=== PATIENT | male | born 1945 | race Caucasian/White ===

== ENCOUNTER 2020-03-03 15:14 | Outpatient (CLI) | payer MEDICARE, SELFPAY ==
[2020-03-03 15:56] LABS: Blood Urea Nitrogen 26 mg/dL (9-20); Carbon Dioxide 25 mmol/L (22-30); Chloride 107 mmol/L (98-107); Estimated Glomerular Filt Rate 50; Glucose 102 mg/dL (75-110); Potassium 4.2 mmol/L (3.4-5.0); Sodium 139 mmol/L (137-145)
== END 2020-03-03 15:15 | disposition home or self-care (01) ==
LOC: ANHLAB 15:17
PROVIDERS: PCP Internal Medicine; Visit Provider Physician Assistant
DX: I10 Essential (primary) hypertension (principal)
CPT/HCPCS: 36415; 80048

== ENCOUNTER 2020-04-25 14:41 | Outpatient (CLI) | payer MEDICARE, SELFPAY ==
[2020-04-25 16:05] LABS: Anion Gap 8 mmol/L (8-16); Blood Urea Nitrogen 35 mg/dL (9-20); Calcium 9.3 mg/dL (8.4-10.2); Carbon Dioxide 24 mmol/L (22-30); Chloride 104 mmol/L (98-107); Estimated Glomerular Filt Rate 54; Glucose 91 mg/dL (75-110); Potassium 4.5 mmol/L (3.4-5.0); Sodium 136 mmol/L (137-145)
[2020-04-25 16:35] LABS: Prostate Specific Antigen 2.9 ng/mL (< OR = 4.0)
== END 2020-04-25 14:42 | disposition home or self-care (01) ==
PROVIDERS: PCP Physician Assistant; Visit Provider Urology
DX: R97.20 Elevated prostate specific antigen [PSA] (principal)
CPT/HCPCS: 36415; 80048; 84153

== ENCOUNTER 2020-09-14 08:20 | Outpatient (CLI) | payer MEDICARE, SELFPAY ==
[2020-09-14 08:57] LABS: Alanine Aminotransferase 19 U/L (4-50); Albumin Level 4.2 g/dL (3.5-5.1); Alkaline Phosphatase 37 U/L (38-126); Anion Gap 7 mmol/L (8-16); Aspartate Amino Transferase 27 U/L (17-59); Bilirubin,Total 0.5 mg/dL (0.2-1.3); Blood Urea Nitrogen 23 mg/dL (9-20); Calcium 9.3 mg/dL (8.4-10.2); Carbon Dioxide 26 mmol/L (22-30); Chloride 105 mmol/L (98-107); Estimated Glomerular Filt Rate 59; Glucose 110 mg/dL (75-110); Potassium 4.3 mmol/L (3.4-5.0); Sodium 138 mmol/L (137-145)
== END 2020-09-14 08:21 | disposition home or self-care (01) ==
LOC: ANHLAB 08:22
PROVIDERS: PCP Physician Assistant; Visit Provider Physician Assistant
DX: E78.5 Hyperlipidemia, unspecified (principal)
CPT/HCPCS: 36415; 80053

== ENCOUNTER 2020-10-24 11:01 | Outpatient (CLI) | payer MEDICARE, SELFPAY ==
--- NOTE | ~2020-10-24 | XR_ITS ---
EXAMINATION: XR toe 2nd LT min 2V EXAM DATE: 10/24/2020 11:28 INDICATION: No known recent injury provided at this time. Pain of the left 2nd toe. TECHNIQUE: Left 2nd toe frontal, lateral and oblique projections obtained and reviewed. There is n o prior study for comparison. FINDINGS: The medial side of the left 2nd middle phalanx is shorter, causing somewhat triangular-sha ped to this bone, probably congenital appearance. There are no bony erosions identified. There are no acute fractures or dislocations identified. There is no subcutaneous gas. The soft tissue is unrem arkable. There are no radiopaque foreign bodies. IMPRESSION: 1. Left 2nd toe exam without acute osseous findings. Reviewed, dictated and finalized at location A. 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
== END 2020-10-24 11:02 | disposition home or self-care (01) ==
PROVIDERS: PCP Physician Assistant; Visit Provider Physician Assistant
DX: M79.676 Pain in unspecified toe(s) (principal)
CPT/HCPCS: 73660

== ENCOUNTER → 2020-11-02 09:41 | Outpatient (CLI) | payer MEDICARE, SELFPAY ==
[2020-11-03 18:59] LABS: SARS-CoV-2 RNA PCR Negative
== END ==
PROVIDERS: PCP Physician Assistant; Visit Provider Physician Assistant
DX: Z20.822 Contact with and (suspected) exposure to COVID-19 (principal); R68.89 Other general symptoms and signs
CPT/HCPCS: C9803; U0003; U0005

== ENCOUNTER 2020-11-29 10:34 | Outpatient (CLI) | payer MEDICARE, SELFPAY ==
[2020-11-29 11:47] LABS: Basophils Percent Auto 0.5 % (0.2-1.2); Eosinophils Absolute Auto 0.1 K/mm3 (0-0.3); Eosinophils Percent Auto 1.6 % (0-4.4); Hematocrit 41.5 % (42.0-52.0); Hemoglobin 13.6 g/dL (14.0-18.0); Immature Granulocyte Absolute 0.04 K/mm3 (0.00-0.031); Immature Granulocyte Percent A 0.9 % (0-0.5); Lymphocytes Absolute Auto 1.14 K/mm3 (0.9-3.2); Lymphocytes Percent Auto 26.5 % (18.3-44.2); Mean Corpuscular HGB Conc 32.8 g/dl (32-36); Mean Corpuscular Hemoglobin 30.7 pg (26-34); Mean Corpuscular Volume 93.7 fl (80-100); Mean Platelet Volume 9.9 fl (7.4-10.4); Monocytes Absolute Auto 0.5 K/mm3 (0.1-0.6); Monocytes Percent Auto 12.1 % (2.6-8.5); Neutrophils Absolute Auto 2.5 K/mm3 (1.3-6.7); Neutrophils Percent Auto 58.4 % (45.5-73.1); Platelet Count Result 227 k/mm3 (150-375); Red Blood Count 4.43 M/mm3 (4.6-6.20); White Blood Count 4.3 K/mm3 (4.5-10.0)
[2020-11-29 12:00] LABS: Rheumatoid Factor < 8.6 IU/ML (<12)
[2020-11-29 12:01] LABS: CRP < 0.5 mg/dL (<1.0); Uric Acid 4.3 mg/dL (3.5-8.5)
[2020-11-29 12:17] LABS: Erythrocyte Sedimentation Rate 7 mm/hr (0-20)
== END 2020-11-29 10:35 | disposition home or self-care (01) ==
PROVIDERS: PCP Physician Assistant; Visit Provider Podiatrist Foot & Ankle Surgery
DX: M25.579 Pain in unspecified ankle and joints of unspecified foot (principal)
CPT/HCPCS: 36415; 84550; 85025; 85652; 86038; 86140; 86430

== ENCOUNTER 2021-03-05 08:34 | Outpatient (CLI) | payer MEDICARE, SELFPAY ==
--- NOTE | ~2021-03-05 | MR_ITS ---
EXAMINATION: MR foot LT wo/w con DATE: 03/05/2021 10:33 INDICATION: Pain and swelling at the second toe of the left foot. TECHNIQUE: Magnetic resonance imaging (MRI) of the left fore/mid foot was performed without and with 15 mL Multihance intravenous contrast. Sequences included axial, sagittal and coronal T1-weighted FSE and T2-weighted FS FSE, axial T2-weighted FS FSE and postcontrast axial and coronal T1-weighted FS F SE. COMPARISON: Radiographs dated 10/24/2020 FINDINGS: Again seen is asymmetric loss of length on the medial side of the second middle phalanx resulting in varus angulation of the distal phalanx. There is normal marrow signal within the middle phalanx sugge sting this is either developmental or sequela of chronic trauma. There is nonspecific marrow edema an d enhancement at the distal phalanx but without evident fracture or loss of T1 hyperintense marrow fa t signal to more specifically suggest osteomyelitis or other pathologic marrow replacing process. The re is thickening with increased T2 signal and enhancement of the subungual tissues underlying the mahesh l of the second toe. Otherwise normal marrow signal throughout. 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 Additional mild osteoarthritis at the third and fourth tarsa l metatarsal joints. No erosions or joint effusions. The Lisfranc ligament complex as well as the col lateral ligament complex at the metatarsophalangeal and interphalangeal joints are normal. The flexor and extensor tendons as well as intrinsic musculature of the visualized fore and midfoot are normal. IMPRESSION: 1. Enhancement and thickening of the subungual tissues at the left second toe which is most likely in fectious/inflammatory in etiology although differential would include neoplasm either benign or malig nant. 2. Marrow edema and enhancement at the left second distal phalanx. This could be reactive or early os teomyelitis in the appropriate clinical setting although there is no loss of T1 marrow fat signal to specifically suggest ostomy myelitis or other pathologic marrow replacing process. Reviewed, dictated and finalized at location A. IMPRESSION: 1. Enhancement and thickening of the subungual tissues at the left second toe w hich is most likely infectious/inflammatory in etiology although differential w ould include neoplasm either benign or malignant. 2. Marrow edema and enhancement at the left second distal phalanx. This could b e reactive or early osteomyelitis in the appropriate clinical setting although there is no loss of T1 marrow fat signal to specifically suggest ostomy myeliti s or other pathologic marrow replacing process.
[2021-03-05 09:46] LABS: Estimated Glomerular Filt Rate 46
== END 2021-03-05 08:35 | disposition home or self-care (01) ==
PROVIDERS: PCP Physician Assistant
DX: M79.89 Other specified soft tissue disorders (principal)
CPT/HCPCS: 73720; A9577

== ENCOUNTER 2021-04-05 09:51 | Outpatient (CLI) | payer MEDICARE, SELFPAY ==
[2021-04-05 11:32] LABS: Hematocrit 45.2 % (42.0-52.0); Hemoglobin 14.5 g/dL (14.0-18.0); Mean Corpuscular HGB Conc 32.1 g/dl (32-36); Mean Corpuscular Hemoglobin 30.9 pg (26-34); Mean Corpuscular Volume 96.4 fl (80-100); Mean Platelet Volume 9.9 fl (7.4-10.4); Platelet Count Result 213 k/mm3 (150-375); Red Blood Count 4.69 M/mm3 (4.6-6.20); Red Cell Distribution Width 13.5 % (11.5-14.5); White Blood Count 5.8 K/mm3 (4.5-10.0)
[2021-04-05 12:09] LABS: Vitamin D 25 Hydroxy 51.5 ng/mL
[2021-04-05 14:21] LABS: Cholesterol 158 mg/dL (0-200); HDL Direct 48 mg/dL; Triglycerides 111 mg/dL (<150)
[2021-04-05 14:34] LABS: LDL Cholesterol Direct 77 mg/dL
== END 2021-04-05 09:52 | disposition home or self-care (01) ==
PROVIDERS: PCP Physician Assistant; Visit Provider Physician Assistant
DX: E55.9 Vitamin D deficiency, unspecified (principal); E78.5 Hyperlipidemia, unspecified; R53.83 Other fatigue
CPT/HCPCS: 36415; 80061; 82306; 84443; 85027

== ENCOUNTER 2021-05-29 01:56 | Day surgery (SDC) | payer MEDICARE, SELFPAY ==
[2021-05-17 12:52] VITALS: BMI 27.6
[2021-05-29 08:15] VITALS: BP 137/59; PULSE 62; RESP 18; O2SAT 100
[2021-05-29] MEDS: LACTATED RINGERS 1,000 ML 150 ML IV CONT (08:29)
--- NOTE | 2021-05-29 08:41 | WPDGICN ---
Assessment and Plan Assessment and plan (1) Encounter for screening colonoscopy: Code(s): Z12.11 - Encounter for screening for malignant neoplasm of colon Status: Acute Assessment and Plan: Patient presents for screening colonoscopy. He appears to be at average risk for colon polyps. GI Consult Note Consult date/time: 05/29/21 08:41 HPI: Louie Snowden is a 76 year old male Presents for screening colonoscopy. He reports his current weight appetite bowel movements are normal. He denies abdominal pain. He has had no bleeding. Family history is noncontributory. Patient's last colonoscopy was 10 years ago. Was found to be unremarkable. For patient presents today for neoplasia screening. Review of Systems Review of Systems: All systems reviewed & are unremarkable except as noted in HPI and below PMFSH Family History Family History Father Family history of alcoholism Family history of cardiovascular disease Mother Cerebrovascular accident Other Family history of premature coronary heart disease Hypertension Social History Social History Smoking status: Never smoker Second hand tobacco smoke exposure: No Alcohol intake: current Living arrangements: with family Spiritual care concerns: No Meds Home Medications and Allergies Home Medications Medication Instructions Recorded Confirmed Type clonazepam 0.5 mg tablet 0.5 mg PO TID PRN tablet 07/10/19 05/17/21 History finasteride 5 mg tablet 5 mg PO DAILY 08/09/20 05/17/21 History bupropion HCl 300 mg 24 hr tablet, 300 mg PO QAM #90 tablet 09/05/20 05/17/21 Rx extended release fenofibrate 160 mg tablet 160 mg PO DAILY #90 tablet 10/02/20 05/17/21 Rx simvastatin 40 mg tablet 40 mg PO .QHS #90 tablet 10/02/20 05/17/21 Rx triamcinolone acetonide 0.1 % 1 applic TOPICAL BID #30 g 10/03/20 05/17/21 Rx topical cream hydrochlorothiazide 12.5 mg tablet See Rx Instructions .ROUTE 12/04/20 05/17/21 Rx .COMPLEX #90 tablet losartan 100 mg PO HS 05/17/21 05/17/21 History Allergies Allergy/AdvReac Type Severity Reaction Status Date / Time wheat Allergy Severe Anaphylactic Verified 05/17/21 12:49 Shock escitalopram [From Lexapro] AdvReac Mild Cough Verified 05/17/21 12:49 Vital Signs Vital Signs - 24 hr 05/29/21 08:15 Pulse Rate 62 Respiratory Rate 18 Blood Pressure 137/59 L Pulse Oximetry 100 Exam Narrative: Physical exam reveals patient to be alert. Vital signs stable. HEENT exam is unremarkable. Patient is anicteric. Lungs are clear to auscultation and percussion. Heart is without murmur or extra sounds. Abdominal exam bowel sounds are present soft nontender with no organomegaly. Digital external rectal exam is normal.
--- NOTE | 2021-05-29 09:01 | WPDANESEPPF ---
Anes - Initial Pre Proc Eval Procedure: Operation Date: 05/29/21 09:00 Proposed Procedures p Screening Colonoscopy - Campbell Tobias MD Date/Time: 05/29/21 09:01 Surgeon: Campbell Tobias MD Pre Op Diagnosis: neoplasm screening Patient Data Age: 76 Gender: M Height: 1.68 m Weight: 76.9 kg Last Vital Signs Pulse 62 05/29/21 08:15 Resp 18 05/29/21 08:15 BP 137/59 L 05/29/21 08:15 Pulse Ox 100 05/29/21 08:15 Allergies Allergy/AdvReac Type Severity Reaction Status Date / Time wheat Allergy Severe Anaphylactic Verified 05/17/21 12:49 Shock escitalopram [From Lexapro] AdvReac Mild Cough Verified 05/17/21 12:49 Home Medications Medication Instructions Recorded Confirmed Type clonazepam 0.5 mg tablet 0.5 mg PO TID PRN tablet 07/10/19 05/17/21 History finasteride 5 mg tablet 5 mg PO DAILY 08/09/20 05/17/21 History bupropion HCl 300 mg 24 hr tablet, 300 mg PO QAM #90 tablet 09/05/20 05/17/21 Rx extended release fenofibrate 160 mg tablet 160 mg PO DAILY #90 tablet 10/02/20 05/17/21 Rx simvastatin 40 mg tablet 40 mg PO .QHS #90 tablet 10/02/20 05/17/21 Rx triamcinolone acetonide 0.1 % 1 applic TOPICAL BID #30 g 10/03/20 05/17/21 Rx topical cream hydrochlorothiazide 12.5 mg tablet See Rx Instructions .ROUTE 12/04/20 05/17/21 Rx .COMPLEX #90 tablet losartan 100 mg PO HS 05/17/21 05/17/21 History Patient hx anesthesia problems: none Family hx anesthesia problems: none Results Review: All pre-operative results and documents have been reviewed as part of the pre-operative evaluation. [facility] Past Medical History Medical History (Updated 05/29/21 @ 08:45 by Abdoul Maxwell MD) Anxiety Hyperlipidemia Hypertension Family History Family History Father Family history of alcoholism Family history of cardiovascular disease Mother Cerebrovascular accident Other Family history of premature coronary heart disease Hypertension Social History Social History Smoking status: Never smoker Second hand tobacco smoke exposure: No Alcohol intake: current Living arrangements: with family Spiritual care concerns: No Anes - Eval Final PreProcedure Day of Procedure 05/29/21 09:01 Patient weight: overweight Heart: regular rate and rhythm Lungs: clear to auscultation Airway: Mallampati scale class II Neurological: alert and oriented Last oral intake: >/= 8 hours ASA classification: III Anesthetic plan: proceed Anesthesia type and monitoring: general GIVS and standard monitoring Results Review: All pre-operative results and documents have been reviewed as part of the pre-operative evaluation. Informed Consent: The patient's anesthetic plan and its attendant risks and benefits were discussed with the patient/family/POA. Questions were solicited and answers provided to the satisfaction of the patient/family/POA.
[2021-05-29 09:25] VITALS: BP 97/55; PULSE 54; RESP 20; O2SAT 96
[2021-05-29 09:35] VITALS: BP 104/62; PULSE 59; RESP 22; O2SAT 98
[2021-05-29 09:45] VITALS: BP 125/73; PULSE 55; RESP 18; O2SAT 100
== END 2021-05-29 09:55 | disposition home or self-care (01) ==
PROVIDERS: PCP Physician Assistant; Visit Provider Internal Medicine Gastroenterology
PROC: 0DJD8ZZ Inspection of Lower Intestinal Tract, Via Natural or Artificial Opening Endoscopic (ICD-10-PCS; CPT 45378; principal; 2021-05-29 09:00)
DX: Z12.11 Encounter for screening for malignant neoplasm of colon (principal); D12.0 Benign neoplasm of cecum; D12.2 Benign neoplasm of ascending colon; K57.30 Diverticulosis of large intestine without perforation or abscess without bleeding; K64.8 Other hemorrhoids; I10 Essential (primary) hypertension; E78.5 Hyperlipidemia, unspecified; F41.9 Anxiety disorder, unspecified
CPT/HCPCS: 45385; 88305; J2704; J7120

== ENCOUNTER 2021-06-01 10:34 | Emergency (ER) | payer MEDICARE, SELFPAY ==
--- NOTE | ~2021-06-01 | CT_ITS ---
EXAMINATION: CT abdomen pelvis w con DATE: 06/01/2021 13:28 INDICATION: Left lower quadrant abdominal pain 3 days post colonoscopy TECHNIQUE: Computed tomography (CT) of the abdomen and pelvis was performed with 100 mL Omnipaque-350 intravenous contrast. Automated exposure control and iterative reconstruction technique were employe d. The dose-length product was 559.05 mGy-cm. COMPARISON: Chest CT dated 07/26/2019 FINDINGS: Chronic mild atelectasis/scarring at the lingula and minimal dependent atelectasis in the bilateral l ower lobes. Heart size is normal. No pericardial or pleural effusion. Atherosclerotic coronary artery calcific location. Liver, gallbladder, bilateral adrenal glands and left kidney are normal. 6 mm rig ht renal cyst. 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 Punctate calcific lesion at the tail the pancreas which may represent sequela of chronic pancreatit is. Prominent diverticulosis along the descending and sigmoid colon. Edematous wall thickening at the proximal sigmoid colon with prominent surrounding from trace stranding and edema within the mesenter y consistent with diverticulitis. Very small amount of likely reactive free fluid in the deep pelvis. No abscess or free intraperitoneal gas. Tiny amount of fluid extends into a small fat-containing lef t spigelian hernia the orifice of which suggests immediately adjacent to the region of diverticulitis . Small bowel and appendix are normal. Bladder is normal. Multiple brachytherapy seeds at the enlarge d prostate. Small bilateral fat-containing inguinal hernias. No pathologically enlarged abdominal or pelvic lymphadenopathy. Mild lumbar levocurvature with mild to moderate spondylosis. Bilateral hip os teoarthritis, moderate on the right and mild on the left. IMPRESSION: 1. Radiographically uncomplicated sigmoid diverticulitis. 2. Bilateral small fat-containing inguinal hernias and small left spigelian hernia containing fat and a minimal amount of reactive edema related to the adjacent diverticulitis. 3. Small amount of likely reactive ascites in the deep pelvis. 4. Prostatomegaly with multiple brachytherapy seeds. Reviewed, dictated and finalized at location A. IMPRESSION: 1. Radiographically uncomplicated sigmoid diverticulitis. 2. Bilateral small fat-containing inguinal hernias and small left spigelian her ashwin containing fat and a minimal amount of reactive edema related to the adjace nt diverticulitis. 3. Small amount of likely reactive ascites in the deep pelvis. 4. Prostatomegaly with multiple brachytherapy seeds.
[2021-06-01 10:47] VITALS: BP 151/69; PULSE 71; RESP 18; TEMP 35.8; O2SAT 99
[2021-06-01 11:07] LABS: Basophils Percent Auto 0.2 % (0.2-1.2); Eosinophils Absolute Auto 0.1 K/mm3 (0-0.3); Eosinophils Percent Auto 0.5 % (0-4.4); Hematocrit 43.1 % (42.0-52.0); Hemoglobin 14.1 g/dL (14.0-18.0); Immature Granulocyte Absolute 0.06 K/mm3 (0.00-0.031); Immature Granulocyte Percent A 0.6 % (0-0.5); Lymphocytes Percent Auto 10.6 % (18.3-44.2); Mean Corpuscular HGB Conc 32.7 g/dl (32-36); Mean Corpuscular Hemoglobin 31.5 pg (26-34); Mean Corpuscular Volume 96.2 fl (80-100); Mean Platelet Volume 9.4 fl (7.4-10.4); Monocytes Absolute Auto 1.1 K/mm3 (0.1-0.6); Monocytes Percent Auto 10.8 % (2.6-8.5); Neutrophils Percent Auto 77.3 % (45.5-73.1); Platelet Count Result 192 k/mm3 (150-375); Red Blood Count 4.48 M/mm3 (4.6-6.20); Red Cell Distribution Width 13.5 % (11.5-14.5); White Blood Count 10.3 K/mm3 (4.5-10.0)
[2021-06-01 11:10] LABS: Add Urine Microscopic? NO; Appearance Urine Clear (Clear); Bilirubin Urine Negative (Negative); Blood Urine Negative (Negative); Color Urine Straw (Yellow); Glucose Urine UA Negative (Negative); Ketones Urine Negative (Negative); Leukocyte Esterase Ur Negative LEU/UL (Negative); Nitrate Urine Negative (Negative); Protein Urine Negative (Negative); Specific Grav Ur 1.009 (1.001-1.035); Urobilinogen Urine Negative mg/dL (<2.0)
[2021-06-01 11:18] LABS: Alanine Aminotransferase 17 U/L (4-50); Albumin Level 4.7 g/dL (3.5-5.1); Alkaline Phosphatase 41 U/L (38-126); Anion Gap 8 mmol/L (8-16); Aspartate Amino Transferase 28 U/L (17-59); Bilirubin,Total 0.7 mg/dL (0.2-1.3); Blood Urea Nitrogen 18 mg/dL (9-20); Calcium 9.6 mg/dL (8.4-10.2); Carbon Dioxide 28 mmol/L (22-30); Chloride 99 mmol/L (98-107); Estimated CRCL calculation 40 ml/min; Estimated Glomerular Filt Rate 54; Glucose 119 mg/dL (65-110); Lipase 197 U/L (23-300); Potassium 4.2 mmol/L (3.4-5.0); Sodium 135 mmol/L (137-145)
[2021-06-01 11:59] VITALS: BP 129/71; PULSE 66; RESP 19; TEMP 37; O2SAT 97
--- NOTE | 2021-06-01 13:14 | ED.ABDPAIN ---
HPI - Abdominal Pain General Chief Complaint: Abdominal Pain Stated Complaint: abd pain Time Seen by Provider: 06/01/21 12:18 Source: patient Mode of arrival: ambulatory Limitations: no limitations History of Present Illness HPI narrative: 76-year-old male complaining of left lower quadrant pain since Friday morning. Patient had a colonoscopy on Friday and has had increasing pain in the left lower quadrant. No fever, no vomiting, pain worse with bearing down, improves with nothing. No diarrhea, no bloody stool, no hematemesis. No flank pain no dysuria no hematuria no other complaints. MD elicited complaint: abdominal pain Pertinent past history: diverticulitis Related Data Home Medications Medication Instructions Recorded Confirmed clonazepam 0.5 mg tablet 0.5 mg PO TID PRN tablet 07/10/19 05/17/21 finasteride 5 mg tablet 5 mg PO DAILY 08/09/20 05/17/21 losartan 100 mg PO HS 05/17/21 05/17/21 Allergies Allergy/AdvReac Type Severity Reaction Status Date / Time wheat Allergy Severe Anaphylactic Verified 06/01/21 12:07 Shock escitalopram [From Lexapro] AdvReac Mild Cough Verified 06/01/21 12:07 Review of Systems Review of Systems: CONSTITUTIONAL: no fever, no weight loss, no confusion EYES: no vision changes, no eye pain ENT: no rhinorrhea, no sore throat, no difficulty swallowing CARDIOVASCULAR: no chest pain, no leg edema, no palpitations RESPIRATORY: no cough, no shortness of breath, no hemoptysis GASTROINTESTINAL: positive for abdominal pain, no nausea, no vomiting, no diarrhea GENITOURINARY: no flank pain, no dysuria, no hematuria SKIN: no rash, no jaundice MUSCULOSKELETAL: no back pain, no trauma. NEUROLOGIC: No headache, no dizziness, no focal weakness PSYCHIATRIC: No hallucinations, no suicidal ideation [facility] Past Medical History Medical History Anxiety Hyperlipidemia Hypertension Family History Family History Father Family history of alcoholism Family history of cardiovascular disease Mother Cerebrovascular accident Other Family history of premature coronary heart disease Hypertension Social History Social History Smoking status: Never smoker Second hand tobacco smoke exposure: No Alcohol intake: current Spiritual care concerns: No Exam Narrative: General: alert, afebrile, answering all questions appropriately Head: normocephalic, atraumatic Eyes: EOMI bilaterally, anicteric, no injection ENT: moist mucous membranes, oropharynx patent, no rhinorrhea Neck: supple, trachea midline, no JVD Chest: equal chest rise bilaterally, no chest wall trauma noted Lungs: clear to auscultation bilaterally, respirations unlabored CV: regular rate, no JULIENNE B, calf size equal bilaterally Abd: soft, non-distended, LLQ tenderness, no rebound, no gaurding, negative Dsouza's EXT: no deformity noted, moving all extremities equally Skin: warm, dry, no pallor Neuro: alert, oriented x 3; CN 2-12 grossly intact, no dysarthria Psych: affect appropriate, though content normal Course Course Emergency Course: Patient with diverticulitis without perforation on CT. Patient is tolerating p.o., no fever, no perforation. Patient is appropriate to send home with antibiotics. Spoke with patient who agrees with plan. Patient will return immediately if fever, intractable vomiting, worsening pain, inability to tolerate fluids or medications or any concern. Patient knows to follow-up with a primary doctor this week without fail. Vital Signs Vital signs: Vital Signs Temperature 35.8 C L 06/01/21 10:47 Pulse Rate 71 06/01/21 10:47 Respiratory Rate 18 06/01/21 10:47 Blood Pressure 151/69 H 06/01/21 10:47 Pulse Oximetry 99 06/01/21 10:47 Temperature 37.0 C 06/01/21 11:59 Pulse Rate 66 06/01/21 11:5
[2021-06-01 14:21] VITALS: BP 128/64; PULSE 64; RESP 18; O2SAT 96
== END 2021-06-01 14:22 | disposition home or self-care (01) ==
PROVIDERS: Emergency Medicine; Emergency Provider Emergency Medicine; PCP Physician Assistant
DX: K57.32 Diverticulitis of large intestine without perforation or abscess without bleeding (principal); E78.5 Hyperlipidemia, unspecified; I10 Essential (primary) hypertension; N40.0 Benign prostatic hyperplasia without lower urinary tract symptoms
CPT/HCPCS: 36415; 74177; 80053; 81003; 83690; 85025; 99284; Q9967

== ENCOUNTER 2022-02-01 14:23 | Outpatient (CLI) | payer MEDICARE, SELFPAY ==
--- NOTE | ~2022-02-01 | US_ITS ---
US scrotum doppler INDICATION: Left testicular pain TECHNIQUE: Testicular sonogram utilizing grayscale and color Doppler FINDINGS: The testes are normal in size and appearance. No focal lesions are seen. The right testes measures 3.3 x 2.5 x 2.4 cm centimeters, and the left testis measures 4.3 x 2.1 x 2.9 cm cm. There is normal vascular flow to both testes. There are small bilateral epididymal cysts, largest in the left epididymis measuring 7 mm. There is no varicocele or hydrocele. IMPRESSION: 1. Bilateral epididymal cysts. Reviewed, dictated and finalized at location B.
== END 2022-02-01 14:24 | disposition home or self-care (01) ==
PROVIDERS: PCP Physician Assistant; Visit Provider Urology
DX: N50.812 Left testicular pain (principal); N50.3 Cyst of epididymis
CPT/HCPCS: 76870; 93976

== ENCOUNTER 2022-09-05 10:09 | Outpatient (CLI) | payer MEDICARE, SELFPAY ==
[2022-09-05 10:56] LABS: Basophils Percent Auto 0.4 % (0.2-1.2); Eosinophils Absolute Auto 0.4 K/mm3 (0-0.3); Eosinophils Percent Auto 8.2 % (0-4.4); Hemoglobin 13.6 g/dL (14.0-18.0); Immature Granulocyte Absolute 0.04 K/mm3 (0.00-0.031); Immature Granulocyte Percent A 0.8 % (0-0.5); Lymphocytes Absolute Auto 1.29 K/mm3 (0.9-3.2); Lymphocytes Percent Auto 26.4 % (18.3-44.2); Mean Corpuscular HGB Conc 33.2 g/dl (32-36); Mean Corpuscular Hemoglobin 30.8 pg (26-34); Mean Corpuscular Volume 92.8 fl (80-100); Mean Platelet Volume 9.2 fl (7.4-10.4); Monocytes Absolute Auto 0.6 K/mm3 (0.1-0.6); Monocytes Percent Auto 11.5 % (2.6-8.5); Neutrophils Absolute Auto 2.6 K/mm3 (1.3-6.7); Neutrophils Percent Auto 52.7 % (45.5-73.1); Platelet Count Result 226 k/mm3 (150-375); Red Blood Count 4.42 M/mm3 (4.6-6.20); Red Cell Distribution Width 13.6 % (11.5-14.5); White Blood Count 4.9 K/mm3 (4.5-10.0)
[2022-09-05 11:05] LABS: Alanine Aminotransferase 20 U/L (6-50); Albumin Level 4.3 g/dL (3.5-5.1); Alkaline Phosphatase 44 U/L (38-126); Anion Gap 5 mmol/L (8-16); Aspartate Amino Transferase 23 U/L (17-59); Bilirubin,Total 0.5 mg/dL (0.2-1.3); Blood Urea Nitrogen 19 mg/dL (9-20); Calcium 9.3 mg/dL (8.4-10.2); Carbon Dioxide 28 mmol/L (22-30); Chloride 107 mmol/L (98-107); Cholesterol 143 mg/dL (0-200); Estimated Glomerular Filt Rate 54; Glucose 104 mg/dL (65-110); HDL Direct 40 mg/dL; Potassium 4.2 mmol/L (3.4-5.0); Sodium 140 mmol/L (137-145); Triglycerides 140 mg/dL (<150)
[2022-09-05 11:15] LABS: LDL Cholesterol Direct 72 mg/dL
[2022-09-05 12:03] LABS: Vitamin D 25 Hydroxy 41.8 ng/mL
[2022-09-05 12:10] LABS: Folic Acid 9.4 ng/mL (2.76->20)
== END 2022-09-05 10:10 | disposition home or self-care (01) ==
PROVIDERS: PCP Physician Assistant; Visit Provider Physician Assistant
DX: R53.83 Other fatigue (principal); E78.5 Hyperlipidemia, unspecified; E55.9 Vitamin D deficiency, unspecified
CPT/HCPCS: 36415; 80053; 80061; 82306; 82607; 82746; 84443; 85025

== ENCOUNTER 2022-09-13 09:45 | Outpatient (CLI) | payer MEDICARE, SELFPAY ==
--- NOTE | ~2022-09-13 | US_ITS ---
EXAMINATION: US retroperitoneal duplex ltd DATE: 09/13/2022 11:10 INDICATION: Hypertension. TECHNIQUE: Multiple grayscale, color Doppler, and pulsed Doppler images of the kidneys and renal julio janeth were obtained. COMPARISON: CT abdomen and pelvis 06/01/2021 FINDINGS: The aorta peak systolic velocity is 117 cm/s. The right renal artery peak systolic velocity is 137 cm /s in the proximal segment, 143 cm/s in the mid segment, and 148 cm/s in the distal segment. The left renal artery peak systolic velocity is 96 cm/s in the proximal segment, 137 cm/s in the mid segment, and 85 cm/s in the distal segment. IMPRESSION: 1. No Doppler evidence of renal artery stenosis. The prior CT similarly shows no significant renal a rtery stenosis. 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 No Doppler evidence of renal artery stenosis. The prior CT similarly shows no significant renal artery stenosis.
== END 2022-09-13 09:46 | disposition home or self-care (01) ==
PROVIDERS: PCP Physician Assistant; Visit Provider Physician Assistant
DX: I10 Essential (primary) hypertension (principal)
CPT/HCPCS: 93976

== ENCOUNTER 2022-09-23 08:11 | Outpatient (CLI) | payer MEDICARE, SELFPAY ==
--- NOTE | ~2022-09-23 | US_ITS ---
EXAMINATION: US renal BI DATE: 09/23/2022 09:00 INDICATION: Other specified disorders of kidney and ureter. TECHNIQUE: Multiple ultrasound grayscale images of the kidneys were obtained. COMPARISON: Ultrasound 09/13/2022, CT abdomen and pelvis 06/01/2021 FINDINGS: The right kidney measures 11.3 x 6.3 x 6.0 cm. The left kidney measures 12.4 x 5.8 x 5.7 cm. The kidn eys demonstrate normal parenchymal echogenicity. There is no hydronephrosis. The bladder demonstrates a diverticulum. IMPRESSION: 1. Normal kidneys. No hydronephrosis. 2. Bladder diverticulum. Reviewed, dictated and finalized at location A. 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
== END 2022-09-23 08:12 | disposition home or self-care (01) ==
PROVIDERS: PCP Physician Assistant; Visit Provider Physician Assistant
DX: N28.89 Other specified disorders of kidney and ureter (principal); N32.3 Diverticulum of bladder
CPT/HCPCS: 76775

== ENCOUNTER 2022-11-12 09:03 | Outpatient (CLI) | payer MEDICARE, SELFPAY ==
--- NOTE | ~2022-11-12 | NM_ITS ---
EXAMINATION: NM deanna stress w perfusion DATE: 11/12/2022 11:41 INDICATION: Atherosclerotic heart disease TECHNIQUE: Rest images were obtained following intravenous administration of 10.8 mCi Tc99m tetrofosm in (Myoview). The patient was infused intravenously with Lexiscan (Regadenoson). Then, 33.0 mCi Tc99m tetrofosmin (Myoview) was administered intravenously, and stress images were obtained. Data was nelson nstructed into short axis and horizontal and vertical long axis SPECT images. Gated SPECT images were also obtained. COMPARISON: None. FINDINGS: There is no definite reversible or fixed perfusion abnormality to suggest ischemia or infar ction. There is normal left ventricular chamber size, wall motion and ejection fraction. Left ventr icular ejection fraction measures >70%. IMPRESSION: 1. Normal myocardial perfusion at rest and during stress. 2. Left ventricular ejection fraction measuring >70%. Reviewed, dictated and finalized at location A.
--- NOTE | 2022-11-12 09:44 | EST_ITS ---
Patient Info Name: Louie Snowden Age: 77 years : 1945 Gender: Male Ht: 65 in Wt: 175 lbs BSA: 1.93 m2 HR: 55 bpm BP: 135 / 67 mmHg Exam Date: 11/12/2022 10:04 AM Exam Location: [facility] Stress Patient Status: Outpatient Admit Date: 11/12/2022 Staff Ordering Physician: Sonny Yeung PA-C Attending Provider: Sonny Yeung PA-C Exercise Technologist: Maribel Reid CT Exercise Physician: Soto Rachel DO Exam Type: CA stress deanna w NM Study Info Indications I25.10 - Atherosclerotic heart disease of [place] coronary artery without angina pectoris A regadenoson stress test was performed. Summary 1. 1. Negative lexiscan stress test for ischemic ST changes by ECG criteria. 2. 2. Stable hemodynamics throughout the test. 3. 3. Nuclear scan to follow and will be reported separately. Please correlate with it. 4. 4. Patient informed of the above results. Protocol: Lexiscan Stress ECG Details Stage: REST Duration (min): 1 min : 15 sec HR (bpm): 55 SBP (mmHg): 135 DBP (mmHg): 67 Stage: REST Duration (min): 7 min : 18 sec HR (bpm): 54 SBP (mmHg): 135 DBP (mmHg): 67 Stage: STAGE 1 Duration (min): 0 min : 59 sec HR (bpm): 72 SBP (mmHg): 135 DBP (mmHg): 70 Stage: RECOVERY Duration (min): 1 min : 0 sec HR (bpm): 76 SBP (mmHg): 135 DBP (mmHg): 70 Stage: RECOVERY Duration (min): 2 min : 0 sec HR (bpm): 75 SBP (mmHg): 135 DBP (mmHg): 70 Stage: RECOVERY Duration (min): 3 min : 0 sec HR (bpm): 73 SBP (mmHg): 130 DBP (mmHg): 63 Stage: RECOVERY Duration (min): 3 min : 13 sec HR (bpm): 72 SBP (mmHg): 130 DBP (mmHg): 63 Rest HR: 54 bpm Peak HR: 76 bpm Rest Sys BP: 135 mmHg Peak Sys BP: 135 mmHg Max Pred HR: 145 bpm % Max Pred HR: 52 % Target HR: 123 bpm Max RPP: 10,260 bpm*mmHg Termination Reason: Completed protocol Cardiac Symptoms: Shortness of breath Total Time: 1 min : 0 sec Rest [place] BP: 67 mmHg Peak [place] BP: 70 mmHg Total Dose: 0.4 mg Resting ECG Sinus bradycardia. Stress ECG No ST changes. Arrhythmias None. Report Signatures
== END 2022-11-12 09:04 | disposition home or self-care (01) ==
PROVIDERS: PCP Physician Assistant; Visit Provider Physician Assistant
DX: I25.10 Atherosclerotic heart disease of native coronary artery without angina pectoris (principal)
CPT/HCPCS: 78452; 93017; A9502; J2785

== ENCOUNTER 2023-09-20 13:10 | Emergency (ER) | payer MEDICARE, SELFPAY ==
--- NOTE | ~2023-09-20 | XR_ITS ---
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 RESULT: Lines, tubes, and devices: None. Lungs and pleura: Clear. Granulomas calcifications. Cardiomediastinal silhouette: Stable. Other: No acute osseous or upper abdominal finding. IMPRESSION: No acute cardiopulmonary process. Reviewed, dictated and finalized at location [facility]. 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
[2023-09-20 13:37] VITALS: BP 134/76; PULSE 68; RESP 14; TEMP 36.8; O2SAT 100
--- NOTE | 2023-09-20 15:26 | ED.URI ---
HPI - URI/Sore Throat General Chief Complaint: Upper Respiratory Infection Stated Complaint: Covid positive Time Seen by Provider: 09/20/23 15:45 Focused HPI: 78 y/o M reports for evaluation for a cough x2 days. States the cough is dry. Reports associated headaches when coughing and nasal congestion. Denies fevers, chest pain, dyspnea, n/v/d, dysuria, hematuria, urinary frequency or urgency. States he had as positive Covid test at home today. GENERAL: Well-appearing, well-nourished, and in no acute distress. HEAD: Normocephalic, atraumatic. CHEST: Clear to auscultation. ?No respiratory distress. HEART: Regular rate and rhythm.? NEURO: ?Alert and oriented x3. Patient screened in triage and initial orders placed.? ?Additional care and disposition to be based upon?diagnostic testing and treatment. History of Present Illness HPI Narrative: 78 y/o M reports for evaluation for a cough x2 days. Pt reports the cough is nonproductive. He reports associated headaches and nasal congestion. States he had a positive at home covid test today and his advised him to come to the ER for further evaluation. He denies fever, chest pain, dyspnea, n/v/d, dysuria, hematuria, urinary frequency or urgency. Related Data Home Medications Medication Instructions Recorded Confirmed clonazepam 0.5 mg tablet 0.5 mg PO TID PRN Anxiety 07/10/19 03/20/23 oxymetazoline 1 % topical cream 1 applic topical DAILY 01/21/23 03/20/23 Allergies Allergy/AdvReac Type Severity Reaction Status Date / Time wheat Allergy Severe Anaphylactic Verified 03/20/23 13:04 Shock escitalopram [From Lexapro] AdvReac Mild Cough Verified 03/20/23 13:04 Review of Systems Review of Systems: All systems reviewed & are unremarkable except as noted in HPI and below PMFSH Past Medical History Medical History Anxiety Family history of pityriasis rosea Hx of adenomatous colonic polyps Hyperlipidemia Hypertension Irritable bowel syndrome with constipation Family History Family History Father Family history of alcoholism Family history of cardiovascular disease Mother Cerebrovascular accident Other Family history of premature coronary heart disease Hypertension Social History Social History Smoking status: Never smoker Second hand tobacco smoke exposure: No Alcohol intake: current Current Housing: Decline to Answer Concerned About Future Housing: Decline to Answer Difficulty Paying Gas/Electric Bills: Decline to Answer Difficulty Paying for Meds: Decline to Answer Currently Unemployed: Decline to Answer Education: Decline to Answer Difficulty w/ Childcare or Family Care: Decline to Answer Living arrangements: with family Spiritual care concerns: No Exam Narrative: GENERAL: Well-appearing, well-nourished, and in no acute distress. HEAD: Normocephalic, atraumatic. EYES: PERRLA and EOMI. ENT: Nares clear, no rhinorrhea or epistaxis. Mucous membranes moist. Posterior pharynx without erythema or edema. No tonsillar hypertrophy. Uvula is midline. NECK: Supple. CHEST: Clear to auscultation. No respiratory distress. HEART: Regular rate and rhythm. No murmur heard. Normal peripheral pulses. ABDOMEN: Soft, nontender, nondistended, normal active bowel sounds. EXTREMITIES: Normal range of motion. No edema. SKIN: Warm, dry, no rash. NEURO: No focal deficits. Alert and oriented x3 Course Vital Signs Vital signs: Vital Signs Temperature 98.3 F 09/20/23 13:37 Pulse Rate 68 09/20/23 13:37 Respiratory Rate 14 09/20/23 13:37 Blood Pressure 134/76 09/20/23 13:37 Pulse Oximetry 100 09/20/23 13:37 Temperature 98.1 F 09/20/23 16:54 Pulse Rate 65 09/20/23 16:54 Respiratory Rate 16 09/20/23 16:54 Blood Pressure 130/7
[2023-09-20 15:45] LABS: Basophils Percent Auto 0.3 % (0.2-1.2); Eosinophils Absolute Auto 0.1 K/mm3 (0-0.3); Eosinophils Percent Auto 1.1 % (0-4.4); Hematocrit 42.1 % (42.0-52.0); Hemoglobin 13.5 g/dL (14.0-18.0); Immature Granulocyte Absolute 0.04 K/mm3 (0.00-0.031); Immature Granulocyte Percent A 0.5 % (0-0.5); Lymphocytes Absolute Auto 0.69 K/mm3 (0.9-3.2); Lymphocytes Percent Auto 8.7 % (18.3-44.2); Mean Corpuscular HGB Conc 32.1 g/dl (32-36); Mean Corpuscular Volume 96.8 fl (80-100); Mean Platelet Volume 9.1 fl (7.4-10.4); Monocytes Absolute Auto 0.9 K/mm3 (0.1-0.6); Monocytes Percent Auto 11.4 % (2.6-8.5); Neutrophils Absolute Auto 6.2 K/mm3 (1.3-6.7); Platelet Count Result 195 k/mm3 (150-375); Red Blood Count 4.35 M/mm3 (4.6-6.20); Red Cell Distribution Width 13.2 % (11.5-14.5)
[2023-09-20 15:54] LABS: Alanine Aminotransferase 22 U/L (6-50); Albumin Level 4.3 g/dL (3.5-5.1); Alkaline Phosphatase 45 U/L (38-126); Anion Gap 8 mmol/L (8-16); Aspartate Amino Transferase 34 U/L (17-59); Bilirubin,Total 0.8 mg/dL (0.2-1.3); Blood Urea Nitrogen 19 mg/dL (9-20); Calcium 9.2 mg/dL (8.4-10.2); Carbon Dioxide 23 mmol/L (22-30); Chloride 101 mmol/L (98-107); Estimated CRCL calculation 45 ml/min; Estimated Glomerular Filt Rate 54; Glucose 99 mg/dL (65-110); Potassium 4.5 mmol/L (3.4-5.0); Sodium 132 mmol/L (137-145)
[2023-09-20 16:21] LABS: Influenza A QL RT-PCR Negative (Negative); Influenza B QL RT-PCR Negative (Negative); RSV RNA, RT-PCR Negative (Negative); SARS-CoV-2 RNA PCR Positive (Negative)
[2023-09-20 16:54] VITALS: BP 130/70; PULSE 65; RESP 16; TEMP 36.7; O2SAT 100
== END 2023-09-20 16:54 | disposition home or self-care (01) ==
LOC: ANHED 16:51
PROVIDERS: Emergency Provider Physician Assistant; PCP Physician Assistant
DX: U07.1 COVID-19 (principal); I10 Essential (primary) hypertension; E78.5 Hyperlipidemia, unspecified; K58.1 Irritable bowel syndrome with constipation; F41.9 Anxiety disorder, unspecified; Z86.010 Personal history of colon polyps
CPT/HCPCS: 36415; 71046; 80053; 85025; 87637; 99283

== ENCOUNTER → 2023-10-17 10:34 | Outpatient (CLI) | payer MEDICARE, SELFPAY ==
--- NOTE | ~2023-10-17 | MR_ITS ---
MRI of the lumbar spine Clinical History: Radiculopathy Technique: Axial T2-weighted images, and sagittal T1-weighted, T2-weighted, and T2 fat-sat images wer e acquired. COMPARISON: 03/11/2015 Findings: There is no fracture or sublocation of the lumbar spine. Vertebral bodies maintain normal h eight and line. No suspicious bone marrow signal abnormality seen. At L1-L2, there is no disc bulge or herniation. There is minimal facet joint hypertrophy. No central canal stenosis or neural foraminal narrowing. At L2-L3, there is moderate to advanced degenerative disc narrowing. There is minimal disc bulge and mild facet arthropathy. No central canal stenosis or definite neural foraminal narrowing. At L3-L4, there is mild disc bulge and mild facet arthropathy. No central canal stenosis. There is mo derate bilateral neural foraminal narrowing. At L4-L5, there is diffuse disc bulge with probable superimposed central disc protrusion. Moderate to advanced facet arthropathy also contribute to severe spinal canal stenosis/thecal sac compression at this level. There is mild bilateral neural foraminal narrowing. At L5-S1, there is minimal disc bulge and moderate to advanced facet arthropathy. No central canal st enosis. There is mild left neural foraminal narrowing. Right neural foramen preserved. Paravertebral soft tissues are unremarkable. Impression: Severe degenerative spondylosis at L4-L5, as detailed above. Mild mild/moderate degenerative change o therwise, as above. Reviewed, dictated and finalized at [facility]. 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 Mild mild/moderate degenerative change otherwise, as above.
== END ==
PROVIDERS: PCP Physician Assistant; Visit Provider Nurse Practitioner Family
DX: M47.26 Other spondylosis with radiculopathy, lumbar region (principal)
CPT/HCPCS: 72148

== ENCOUNTER 2024-02-28 09:47 | Outpatient (CLI) | payer MEDICARE, SELFPAY | END 2024-02-28 09:48 | disposition home or self-care (01) | PROVIDERS: PCP Physician Assistant; Visit Provider Internal Medicine | DX: D64.9 Anemia, unspecified (principal) | CPT/HCPCS: 36415; 82728 ==

== ENCOUNTER 2024-03-08 08:56 | Outpatient (CLI) | payer MEDICARE, SELFPAY ==
[2024-03-08 09:41] LABS: Iron 87 ug/dL (49-181)
[2024-03-08 09:53] LABS: Percent Iron Saturation 27 % (20-50)
== END 2024-03-08 08:57 | disposition home or self-care (01) ==
LOC: ANHLAB 08:58
PROVIDERS: PCP Internal Medicine; Visit Provider Internal Medicine
DX: R79.89 Other specified abnormal findings of blood chemistry (principal)
CPT/HCPCS: 36415; 83540; 83550

== ENCOUNTER 2024-05-30 17:02 | Emergency (ER) | payer MEDICARE, SELFPAY ==
[2024-05-30 17:16] VITALS: BP 156/84; PULSE 65; RESP 16; TEMP 36.6; O2SAT 100
--- NOTE | 2024-05-30 17:34 | ED.GENADULT ---
HPI - General Adult General Chief complaint: Ear Stated complaint: RINGING IN EAR/BLOOD IN EAR Source: patient and family Mode of arrival: ambulatory Limitations: no limitations History of Present Illness HPI narrative: Patient presents for evaluation of sick symptoms. He indicates over last 3-4 days he has experienced sinus congestion, headache, worsening tinnitus, occasional cough. He provides me with conflicting responses as to whether he is experiencing any SOB. He has a history of chronic tinnitus for many years. Symptoms have worsened in the past few days. He reports bleeding from the right ear, noting blood on his pillow case. He states a worker came to repair something in his home and mentioned that he had symptoms consistent with a viral illness. He reports some nausea without vomiting or abdominal pain. Related Data Home Medications Medication Instructions Recorded Confirmed clonazepam 0.5 mg tablet 0.5 mg PO TID PRN Anxiety 07/10/19 05/30/24 oxymetazoline 1 % topical cream 1 applic topical DAILY 01/21/23 05/30/24 cholecalciferol (vitamin D3) 25 25 mcg PO DAILY 01/15/24 01/15/24 mcg (1,000 unit) capsule Allergies Allergy/AdvReac Type Severity Reaction Status Date / Time wheat Allergy Severe Anaphylactic Verified 05/30/24 17:10 Shock escitalopram [From Lexapro] AdvReac Mild Cough Verified 05/30/24 17:10 Review of Systems Review of Systems: CONSTITUTIONAL: Denies fever, chills, or sweats. EYES: Denies visual changes, redness, or discharge. ENT: Reports sinus congestion, bleeding from the right ear and acute on chronic tinnitus. Reports chronic rhinorrhea which he attributes to allergies. CARDIOVASCULAR: Denies chest pain, palpitations, or edema. RESPIRATORY: Reports cough GASTROINTESTINAL: Reports nausea. Denies abdominal pain, vomiting, or diarrhea. GENITOURINARY: Denies dysuria or hematuria. SKIN: Denies rash or itching. MUSCULOSKELETAL: Denies back pain, joint pain, or myalgia. NEUROLOGIC: Reports headache. Denies numbness, dizziness, or weakness. PSYCHIATRIC: Denies anxiety or depression. [facility] Past Medical History Medical History Anxiety Family history of pityriasis rosea Hx of adenomatous colonic polyps Hyperlipidemia Hypertension Irritable bowel syndrome with constipation Family History Family History Father Family history of alcoholism Family history of cardiovascular disease Mother Cerebrovascular accident Other Family history of premature coronary heart disease Hypertension Social History Social History Smoking status: Never smoker Second hand tobacco smoke exposure: No Alcohol intake: current Current Housing: Decline to Answer Concerned About Future Housing: Decline to Answer Difficulty Paying Gas/Electric Bills: Decline to Answer Difficulty Paying for Meds: Decline to Answer Currently Unemployed: Decline to Answer Education: Decline to Answer Difficulty w/ Childcare or Family Care: Decline to Answer Living arrangements: with family Spiritual care concerns: No Exam Narrative: GENERAL: Well-appearing, well-nourished, and in no acute distress. HEAD: Normocephalic, atraumatic. EYES: PERRLA and EOMI. ENT: Nares clear, no rhinorrhea or epistaxis. Mucous membranes moist. Oropharynx without tonsillar hypertrophy exudate or other lesions. There is dried sanguinous drainage in the right ear canal. NECK: Supple. No adenopathy or masses. No carotid bruits or JVD CHEST: Clear to auscultation. No respiratory distress. No wheezes rales or rhonchi HEART: Regular rate and rhythm. No murmur heard. Normal peripheral pulses. ABDOMEN: Soft, nontender, nondistended, normal active bowel sounds. EXTREMITIES: Normal range of motion. No edema. SKIN: [place]
[2024-05-30 18:02] LABS: EDCOVIDSCREEN Negative (Negative); EDINFLUASCREEN Negative (Negative); EDINFLUBSCREEN Negative (Negative)
== END 2024-05-30 18:17 | disposition home or self-care (01) ==
PROVIDERS: Emergency Provider Nurse Practitioner; PCP Internal Medicine
DX: H66.91 Otitis media, unspecified, right ear (principal); Z20.822 Contact with and (suspected) exposure to COVID-19; E78.5 Hyperlipidemia, unspecified; I10 Essential (primary) hypertension; F41.9 Anxiety disorder, unspecified
CPT/HCPCS: 87426; 87804; 99213; G0463

== ENCOUNTER 2024-09-23 08:23 | Outpatient (CLI) | payer MEDICARE, SELFPAY ==
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
--- OUTSIDE RECORDS SUMMARY | 2024-09-23 08:33 | XMS_ITS ---
Author Organization [facility], Address [address] [place] [id number] Care Team Providers Care Order Planner Name Role Phone Sonny Yeung Primary Care Provider Jayro Solomon Unavailable [phone] ALLERGIES No Known Allergies REASON FOR REFERRAL Reason DIAGNOSES: s/p L4-5 lami and disc on the right, SI enthesopathy, back pain/strain, DDD, radiculopathy 3 times per week for 3 weeks eval and treat, exercise, modalities per therapist's discretion; HEP sacroiliac mobilization/stabilization Referral Organization [facility] Referring Provider First Name Jayro Referring Provider Last Name Emily Referring Provider Speciality Orthopedic Surgery Referred Provider Specialty Physical The [facility] Referral Priority Routine REASON FOR VISIT low back MEDICATIONS Medication SIG (Take, Route, Frequency, Duration) Notes Start Date End Date Status methylPREDNISolone 4 MG as directed Oral ly on package for 6 days 07/21/2024 Active HYDROcodone-Acetaminophen 7.5-325 MG 1 tablet as needed Orally every 4-6 hrs for 7 days 02/02/2024 Not-Taking Doxycycline Hyclate 100 MG 1 capsule Ora lly twice daily for 7 days 03/17/2024 Not-Taking Meloxicam 15 MG 1 tablet with food Orally Once a day for 90 days 03/17/2024 Not-Taking Losartan Potassium A ctive clonazePAM Active buPROPion HCl Active Simvastatin Active hydroCHLOROthiazide Active Fenofibrate Active metroNIDAZOLE Active Tylenol Active VITAL SIGNS BMI 28.57 kg/m2 07/21/2024 Height 66 in 07/21/2024 Weight 177 lbs 07/21/2024 Encounters Encounter Location Date Provider Diagnosis [facility] [address] [place] [address] 07/21/2024 Jayro Diaz Other low back pain M54.59 ; Back strain S39.012A ; Myalgia, other site M79.18 ; Arthrodesis status Z98.1 ; Disc Degeneration, Lumbar Region with Leg Pain 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 and 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 ASSESSMENTS Encounter Date Diagnosis Assessment Notes Treatment Notes Treatment Clinical Notes 07/21/2024 Other low back pain (ICD-10 - M54.59) 07/21/2024 Back strain (ICD-10 - S39.012A) 07/21/2024 Myalgia, other site (ICD-10 - M79.18) 07/21/2024 Arthrodesis status (ICD-10 - Z98.1) 07/21/2024 Disc Degeneration, Lumbar Region with Leg Pain (ICD-10 - M51.361) 07/21/2024 Facet degeneration of lumbar region (ICD-10 - M47.816) PLAN OF TREATMENT Medication Medication Name Sig Start Date Stop Date Notes methylPREDNISolone 4 MG as directed Oral ly on package for 6 days 07/21/2024 Referrals Referral Date Details DIAGNOSES: s/p L4-5 lami and disc on the right, SI enthesopathy, back pain/strain, DDD, radiculopathy 3 times per week for 3 weeks eval and treat, exercise, modalities per therapist's discretion; HEP sacroiliac mobilization/stabilization Progress Notes * Examination Category Sub-Category Detail Notes General Examination GENERAL: Patient is a lert and cooperative. He moves about the room in a cautious fashion. He does not walk with a list/limp. He does not use a cane/walker to ambulate NECK: No tenderness to pal pation. Mild kyphosis. Cervical ROM reduced in EXT HEART: Regular rate and rhy thm LUNGS: Clear to auscultatio n in all [place] ABDOMEN: No tenderness to pal pation, bowel sounds present all four quadrants NEUROLOGIC: UE and LE neurologic exam reveals symmetric DTR's, intact sensation, 5+/5+ motor strength. SLR testing negative SKIN: No evidence of skin rashes or dermal lesions MUSCULOSKELETAL: Thoracic exam reveal s no tenderness to palpation, no spasm. Lumbar exam reveals a well-healed back incision, non-tender to touch. Tension involving R. lumbar paraspinal musculature. Tension involving R. lower lumbosacral region. Lumbar ROM reveals FF 95 degrees, EXT 35 degrees, SB 35-40 degrees. Lumbosacral exam reveals focal tenderness to palpation involving R. SI region aggravated with reversed extension test. Gaenslen's sign positive PSYCHIATRIC: Mood and affect appe ar normal HEENT: No masses, PERRLA, E OM intact, no nasal drainage, no lymphadenopathy JOINTS: Hip log roll testing negative. Hip ROM mildly diminished bilaterally in internal rotation HEMATOLOGIC: No evidence of exces sive bruising or bleeding Consultation Request Notes Referral Date Referring Provider Referred Provider Not es 07/21/2024 Jayro Diaz , DIAGNOSES: s /p L4-5 lami and disc on the right, SI enthesopathy, back pain/strain, DDD, radiculopathy 3 times per week for 3 weeks eval and treat, exercise, modalities per therapist's discretion; HEP sacroiliac mobilization/stabilization
--- OUTSIDE RECORDS SUMMARY | 2024-09-23 08:34 | XMS_ITS | Patient Health Record ---
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 Name Role Phone Sanju Jain DO Primary Care Provider Micheal Bustillos Unavailable [phone] Samuel Kelsey Unavailable [phone] Migration, Provider Unavailable Unavailable Allergies No Known Allergies Reason For Referral No Information Medications Medication SIG (Take, Route, Frequency, Duration) Notes Start Date End Date Status clonazePAM 0.5 MG 1 tablet Oral Twice a day for 30 days As needed 08/05/2024 Active hydroCHLOROthiazide 12.5 MG Oral 12/09/2023 Active Fenofibrate 160 MG Oral 12/09/2023 Active buPROPion HCl ER (XL) 300 MG Oral 12/09/2023 Active Losartan Potassium 100 MG Oral 12/09/2023 Active Simvastatin 40 MG Oral 12/09/2023 A ctive Immunizations Vaccine Route Administration Date Status Comme nts Influenza virus vaccine, quadrivalent (IIV4), split virus, 0.25 mL dosage Unknown 05/17/2020 Administered Influenza, high dose seasonal Unknown 06/10/2017 Admini stered Influenza, unspecified formulation Unknown 04/25/2018 A dministered Infuenza, trivalent, recombi nant, preservative free Unknown 06/05/2018 Administered Infuenza, trivalent, recombi nant, preservative free Unknown 05/24/2019 Administered Moderna Covid-19 Vaccine 1st dose Unknown 10/10/2020 Ad ministered Moderna Covid-19 Vaccine 1st dose Unknown 11/07/2020 Ad ministered Pneumococcal conjugate PCV 13 Unknown 12/12/2011 Admini stered Pneumococcal conjugate PCV 13 Unknown 06/10/2017 Admini stered Pneumococcal polysaccharide PPV23 Unknown 01/11/2012 Ad ministered Pneumococcal polysaccharide PPV23 Unknown 06/05/2018 Ad ministered Zoster Unknown 04/06/2020 Administered Zoster Unknown 06/23/2020 Administered Social History Sex Assigned At : Social History Observation Description Sex Assigned At Male Vital Signs Heart Rate 69 /min 08/05/2024 Height-cm 165.10 cm 08/05/2024 Blood pressure diastolic 78 mm Hg 08/05/2024 Weight-kg 83.91 kg 08/05/2024 Height 65.00 in 08/05/2024 Blood pressure systolic 156 mm Hg 08/05/2024 Weight 185.0 lbs 08/05/2024 BMI 30.78 kg/m2 08/05/2024 Encounters Encounter Location Date Provider Diagnosis [place] [id number] [address] 01/20/2024 Samuel Kelsey [place] [address] [facility] [address] [place] [address] 10/08/2023 Samuel Kelsey Major depressive disorder, recurrent, mild F33.0 and Generalized anxiety disorder F41.1 [place] [address] [address] 10/31/2023 Provider Migration Generalized anxiety disorder F41.1 [place] [address] [address] 11/13/2023 Samuel Kelsey Major depressive disorder, recurrent, mild F33.0 and Generalized anxiety disorder F41.1 [place] [address] [address] 11/28/2023 Samuel Kelsey Major depressive disorder, recurrent, mild F33.0 and Generalized anxiety disorder F41.1 [facility] [address] [facility] [address] [place] [address] 12/09/2023 Micheal Almanza Generalized anxiety disorder F41.1 ; Major depressive disorder, recurrent, mild F33.0 and Other insomnia G47.09 [place] [address] [facility] [address] [place] [address] 12/12/2023 Samuel Kelsey Major depressive disorder, recurrent, mild F33.0 and Generalized anxiety disorder F41.1 [facility], [facility] [address] [place] [address] 01/06/2024 Samuel Kelsey Major depressive disorder, recurrent, mild F33.0 and Generalized anxiety disorder F41.1 [facility], [facility] [address] [place] [address] 02/20/2024 Samuel Kelsey Generalized anxiety disorder F41.1 and Recurrent major depressive episodes, mild F33.0 [facility], [facility] [address] [place] [address] 03/05/2024 Samuel Kelsey Generalized anxiety disorder F41.1 and Recurrent major depressive episodes, mild F33.0 [facility], [facility] [address] [place] [address] 03/19/2024 Samule Kelsey Generalized anxiety disorder F41.1 and Recurrent major depressive episodes, mild F33.0 [facility], [facility] [address] [place] [address] 03/31/2024 Samuel Kelsey Generalized anxiety disorder F41.1 and Recurrent major depressive episodes, mild F33.0 [facility], [facility] [address] [place] [address] 04/16/2024 Samuel Kelsey Generalized anxiety disorder F41.1 and Recurrent major depressive episodes, mild F33.0 [facility], [facility] [address] [place] [address] 05/05/2024 Samuel Kelsey Generalized anxiety disorder F41.1 and Recurrent major depressive episodes, mild F33.0 [facility], [facility] [address] [place] [address] 06/04/2024 Samuel Kelsey Generalized anxiety disorder F41.1 and Recurrent major depressive episodes, mild F33.0 [facility], [facility] [address] [place] [address] 07/07/2024 Samuel Kelsey [facility], [facility] [address] [place] [address] 08/04/2024 Samuel Kelsey Generalized anxiety disorder F41.1 and Recurrent major depressive episodes, mild F33.0 [facility], [facility] [address] [place] [address] 08/05/2024 Micheal Almanza Generalized anxiety disorder F41.1 ; Major depressive disorder, recurrent, mild F33.0 and Other insomnia G47.09 [facility], [facility] [address] [place] [address] 10/17/2023 [facility], [facility] [address] [place] [address] 10/28/2023 Provider Migration [facility], [facility] [address] [place] [address] 2024 Provider Migration [facility], [facility] [address] [place] [address] 01/11/2024 [facility], [facility] [address] [place] [address] 02/09/2024 [facility] [address] [place] [address] 02/24/2024 [facility] [address] [place] [address] 04/06/2024 Michealselam Hortaoza Generalized anxiety disorder F41.1 [facility], [facility] [address] [place] [address] 04/08/2024 [facility] [address] [place] [address] 04/17/2024 [facility] [address] [place] [address] 04/28/2024 [facility] [address] [place] [address] 04/28/2024 [facility] [address] [place] [address] 04/28/2024 Micheal Almanza Generalized anxiety disorder F41.1 [facility], [facility] [address] [place] [address] 06/26/2024 Micheal Almanza Generalized anxiety disorder F41.1 [facility], [facility] [address] [place] [address] 06/28/2024 [facility] [address] [place] [address] 07/26/2024 Micheal Almanza Generalized anxiety disorder F41.1 [place] [address] [facility] [address] [facility] [address] [place] [address] 09/01/2024 Micheal Almanza Assessments Encounter Date Diagnosis (ICD Code) Assessment [...] currently on Clonazapam and Trazadone.Client born in [facility] and grew up in [place], but moved around a lot, and spent a lot of time in [facility]. Parents were 59 years with father having [...] currently on Clonazapam and Trazadone.Client born in [facility] and grew up in [place], but moved around a lot, and spent a lot of time in [place]. Parents were 59 years with father having [...] drugs and being very irresponsible and irrational. 06/04/2024 Generalized anxiety disorder (ICD-10 - F41.1) 77 [...] currently on Clonazapam and Trazadone.Client born in [facility] and grew up in [place], but moved around a lot, and spent a lot of time in [facility]. Parents were 59 years with father having [...] drugs and being very irresponsible and irrational. 06/04/2024 Recurrent major depressive episodes, mild (ICD-10 - [...] currently on Clonazapam and Trazadone.Client born in [facility] and grew up in [place], but moved around a lot, and spent a lot of time in [facility]. Parents were 59 years with father having [...] drugs and being very irresponsible and irrational. 04/06/2024 Generalized anxiety disorder (ICD-10 - F41.1) 10/31/2023 Generalized anxiety disorder (ICD-10 - F41.1) 01/06/2024 Major depressive disorder, recurrent, mild (ICD-10 - F33.0) 01/06/2024 Generalized anxiety disorder (ICD-10 - F41.1) 12/12/2023 Major depressive disorder, recurrent, mild (ICD-10 - F33.0) 12/12/2023 Generalized anxiety disorder (ICD-10 - F41.1) 12/09/2023 Major depressive disorder, recurrent, mild (ICD-10 - F33.0) 12/09/2023 Generalized anxiety disorder (ICD-10 - F41.1) 12/09/2023 Other insomnia (ICD-10 - G47.09) 11/28/2023 Major depressive disorder, recurrent, mild (ICD-10 - F33.0) 11/28/2023 Generalized anxiety disorder (ICD-10 - F41.1) 11/13/2023 Major depressive disorder, recurrent, mild (ICD-10 - F33.0) 11/13/2023 Generalized anxiety disorder (ICD-10 - F41.1) 10/08/2023 Major depressive disorder, recurrent, mild (ICD-10 - F33.0) 10/08/2023 Generalized anxiety disorder (ICD-10 - F41.1) 02/20/2024 Generalized anxiety disorder (ICD-10 - F41.1) 77 [...] for medication therapy; currently on Clonazapam and Trazadone. Client born in [facility] and grew up in [place], but moved around a lot, and spent a lot of time in [facility]. Parents were 59 years with father having [...] drugs and being very irresponsible and irrational. 02/20/2024 Recurrent major depressive episodes, mild (ICD-10 - [...] for medication therapy; currently on Clonazapam and Trazadone. Client born in [facility] and grew up in [place], but moved around a lot, and spent a lot of time in [facility]. Parents were 59 years with father having [...] drugs and being very irresponsible and irrational. 03/05/2024 Generalized anxiety disorder (ICD-10 - F41.1) 77 [...] currently on Clonazapam and Trazadone.Client born in [facility] and grew up in [place], but moved around a lot, and spent a lot of time in [facility]. Parents were 59 years with father having [...] drugs and being very irresponsible and irrational. 03/05/2024 Recurrent major depressive episodes, mild (ICD-10 - [...] currently on Clonazapam and Trazadone.Client born in [facility] and grew up in [place], but moved around a lot, and spent a lot of time in [place]. Parents were 59 years with father having [...] drugs and being very irresponsible and irrational. 03/19/2024 Generalized anxiety disorder (ICD-10 - F41.1) 77 [...] currently on Clonazapam and Trazadone.Client born in [facility] and grew up in [place], but moved around a lot, and spent a lot of time in [place]. Parents were 59 years with father having [...] drugs and being very irresponsible and irrational. 03/19/2024 Recurrent major depressive episodes, mild (ICD-10 - [...] currently on Clonazapam and Trazadone.Client born in [facility] and grew up in [place], but moved around a lot, and spent a lot of time in [facility]. Parents were 59 years with father having [...] drugs and being very irresponsible and irrational. 03/31/2024 Generalized anxiety disorder (ICD-10 - F41.1) 77 [...] currently on Clonazapam and Trazadone.Client born in [facility] and grew up in [place], but moved around a lot, and spent a lot of time in [facility]. Parents were 59 years with father having [...] drugs and being very irresponsible and irrational. 03/31/2024 Recurrent major depressive episodes, mild (ICD-10 - [...] currently on Clonazapam and Trazadone.Client born in [facility] and grew up in [place], but moved around a lot, and spent a lot of time in [facility]. Parents were 59 years with father having [...] drugs and being very irresponsible and irrational. 04/16/2024 Generalized anxiety disorder (ICD-10 - F41.1) 77 [...] currently on Clonazapam and Trazadone.Client born in [facility] and grew up in [place], but moved around a lot, and spent a lot of time in [facility]. Parents were 59 years with father having [...] drugs and being very irresponsible and irrational. 04/16/2024 Recurrent major depressive episodes, mild (ICD-10 - [...] currently on Clonazapam and Trazadone.Client born in [facility] and grew up in [place] [place], but moved around a lot, and spent a lot of time in [facility]. Parents were 59 years with father having [...] drugs and being very irresponsible and irrational. 04/28/2024 Generalized anxiety disorder (ICD-10 - F41.1) 05/05/2024 Generalized anxiety disorder (ICD-10 - F41.1) 77 [...] currently on Clonazapam and Trazadone.Client born in [facility] and grew up in [place] [place], but moved around a lot, and spent a lot of time in [facility]. Parents were 59 years with father having [...] drugs and being very irresponsible and irrational. 05/05/2024 Recurrent major depressive episodes, mild (ICD-10 - [...] currently on Clonazapam and Trazadone.Client born in [facility] and grew up in [place], but moved around a lot, and spent a lot of time in [facility]. Parents were 59 years with father having [...] drugs and being very irresponsible and irrational. 06/26/2024 Generalized anxiety disorder (ICD-10 - F41.1) 07/26/2024 Generalized anxiety disorder (ICD-10 - F41.1) 08/05/2024 Major depressive disorder, recurrent, mild (ICD-10 - F33.0) on bupropion xl by pcp 1. Anxiety: - Patient reports anxiety related to lack of control in certain situations, such as insurance changes. Anxiety is mostly stable but can be triggered by specific events. - Patient has been working with a therapist, Samuel, who has provided helpful coping strategies. Plan: - Continue current therapy sessions with Samuel. - Encourage the patient to practice coping strategies and focus on peace of mind. 2. Insomnia: - Patient reports difficulty staying asleep, waking up after 3-4 hours, and getting a total of 5-5.5 hours of sleep per night. - Patient inquires about the normalcy of waking up in the middle of the night at age 79. Plan: - Educate the patient on common sleep disturbances in older adults and potential contributing factors. - Adjust clonazepam dosing to 0.5 mg in the morning, 0.5 mg at noon, and 0.5 mg at night, for a total of 1.5 mg per day. - Monitor sleep quality and reevaluate the medication regimen as needed. 3. Depression: - Patient has a history of low-grade depression (dysthymia) and is currently on bupropion. - Patient inquires about the potential need to change the medication due to long-term use. Plan: - Continue bupropion as prescribed. - Monitor depressive symptoms and discuss the potential need for medication adjustment in future visits if symptoms worsen or do not improve. Pharmacy change: - Patient reports a [facility] in pharmacy [facility] to [facility] in [place] starting August 25. Plan: - Update the patient's pharmacy information in the medical record. - Ensure future prescriptions are sent to the correct pharmacy. 08/05/2024 Generalized anxiety disorder (ICD-10 - F41.1) 1. Anxiety: - Patient reports anxiety related to lack of control in certain situations, such as insurance changes. Anxiety is mostly stable but can be triggered by specific events. - Patient has been working with a therapist, Samuel, who has provided helpful coping strategies. Plan: - Continue current therapy sessions with Samuel. - Encourage the patient to practice coping strategies and focus on peace of mind. 2. Insomnia: - Patient reports difficulty staying asleep, waking up after 3-4 hours, and getting a total of 5-5.5 hours of sleep per night. - Patient inquires about the normalcy of waking up in the middle of the night at age 79. Plan: - Educate the patient on common sleep disturbances in older adults and potential contributing factors. - Adjust clonazepam dosing to 0.5 mg in the morning, 0.5 mg at noon, and 0.5 mg at night, for a total of 1.5 mg per day. - Monitor sleep quality and reevaluate the medication regimen as needed. 3. Depression: - Patient has a history of low-grade depression (dysthymia) and is currently on bupropion. - Patient inquires about the potential need to change the medication due to long-term use. Plan: - Continue bupropion as prescribed. - Monitor depressive symptoms and discuss the potential need for medication adjustment in future visits if symptoms worsen or do not improve. Pharmacy change: - Patient reports a change in pharmacy from [facility] to [facility] in [place] starting August 25. Plan: - Update the patient's pharmacy information in the medical record. - Ensure future prescriptions are sent to the correct pharmacy. 08/05/2024 Other insomnia (ICD-10 - G47.09) 1. Anxiety: - Patient reports anxiety related to lack of control in certain situations, such as insurance changes. Anxiety is mostly stable but can be triggered by specific events. - Patient has been working with a therapist, Samuel, who has provided helpful coping strategies. Plan: - Continue current therapy sessions with Samuel. - Encourage the patient to practice coping strategies and focus on peace of mind. 2. Insomnia: - Patient reports difficulty staying asleep, waking up after 3-4 hours, and getting a total of 5-5.5 hours of sleep per night. - Patient inquires about the normalcy of waking up in the middle of the night at age 79. Plan: - Educate the patient on common sleep disturbances in older adults and potential contributing factors. - Adjust clonazepam dosing to 0.5 mg in the morning, 0.5 mg at noon, and 0.5 mg at night, for a total of 1.5 mg per day. - Monitor sleep quality and reevaluate the medication regimen as needed. 3. Depression: - Patient has a history of low-grade depression (dysthymia) and is currently on bupropion. - Patient inquires about the potential need to change the medication due to long-term use. Plan: - Continue bupropion as prescribed. - Monitor depressive symptoms and discuss the potential need for medication adjustment in future visits if symptoms worsen or do not improve. Pharmacy change: - Patient reports a change in pharmacy from [facility] to [facility] in [place] starting August 25. Plan: - Update the patient's pharmacy information in the medical record. - Ensure future prescriptions are sent to the correct pharmacy. 02/20/2024 Other Client participated in individual psychotherapy(CB T) related to his history of anxiety and mild depression. Based on today's session continued psychotherapy is recommended with no changes to treatment plan. Client presented to session well groomed and fully oriented with no risk of harm to self or others. Seen today for the first time since 01.06.2024. Verbal and engaged through out session with appropriate mood and affect. Reported upon presentation that he has okay and recovering from back surgery he had a few weeks ago. Noted that is doing much better after her recent heart surgery and did a wonderful job stepping up after his surgery. Further stated that he was able to set a healthy boundary with one of his grandson when he told him no. Grandson had requested to drive one of his vehicles even though he does not have a drivers license. Client admitted that a year ago he would not have been able to tell grandson no. Session accordingly addressed client's beliefs (regarding) boundary setting and anxiety. He was receptive to session feedback and was encouraged to continue examing beliefs which no longer work. Added that he has been able to tell no more often. Next session in two weeks. 77 year old male who presents [...] for medication therapy; currently on Clonazapam and Trazadone. Client born in [facility] and grew up in [facility] [place], but moved around a lot, and spent a lot of time in [facility]. Parents were 59 years with father having [...] drugs and being very irresponsible and irrational. 03/05/2024 Other Client participated in individual psychotherapy(CB T) related to history of anxiety and depression. Based on today's session continued psychotherapy is recommended with no changes to treatment plan. Client presented to session well groomed and fully oriented with no risk of harm to self or others. Client verbal and engaged through out session. Reported upon presentation that he has not been quite well as I am normally am . Noted that anxiety has been elevated inspite of back feeling better. Further shared that he recently had some blood workup and was told that something was high and needed to have further blood work done. Stated that he considered not doing further blood work due to fear of finding out what could be wrong. Focus of session centered on exploring client's beliefs regarding where he is at in life and how beliefs impact and or contribute to his anxiety and depression. Client recepive to session feedback. Next session in two weeks. 77 year old male who presents [...] currently on Clonazapam and Trazadone.Client born in [facility] and grew up in [facility] [place], but moved around a lot, and spent a lot of time in [facility]. Parents were 59 years with father having [...] drugs and being very irresponsible and irrational. 03/19/2024 Other Client partcipated in individual psychotherpay(CB T) related to hx of anxiety and depression. Based on today's session continued psychotherapy is recommended with no changes to treatment plan. Client presented to session well groomed and fully oriented with no risk of harm to self or others. Client verbal and engaged through out session. Reported upon presentation that he had been good a couple of days ago but has since then had an increase in anxiety. Believes that he has allowed self to get over whelmed by so much going on around him. Client admitted that he has a an unhealthy relationship with money as a result of how he was raised. Noted that he does not like spending money on himself but is not bothered when spends money. Session accordingly helped client explore and address beliefs which continue to support and fuel his anxiety and depression. Session moreover also explore client's relationship with anger. Client recepitve to session feedback. Next session in two weeks. 77 year old male who presents [...] currently on Clonazapam and Trazadone.Client born in [facility] and grew up in [facility], but moved around a lot, and spent a lot of time in [facility]. Parents were 59 years with father having [...] drugs and being very irresponsible and irrational. 03/31/2024 Other Client participated in individual psychotherapy(CB T) related to hx of anxiety and depression. Based on today's session continued psychotherapy is recommended with no changes to treatment plan. Client presented to session well groomed and fully oriented with no risk of harm to self or others. Client verbal and engaged throuh out session. Reported upon presentation that he has been up and down since last seen on 03.19.2024. Spoke at length about recent changes he has had in his life in the past years. Admitted that he has not been as accepting of changes as he has needed to be.Most recent change has been 's declining cognitive abilities. Stated that son recently stated that mom is not sticking to the plot in describing her current cognitive issues. Session accordingly helped client process and examine his thoughts and feelings surrounding 's health issues and his relatinship with control and certainty. Client receptive to session feedback and was encouraged to continue in examining his relationship with control. Next session in two weeks. 77 year old male who presents [...] currently on Clonazapam and Trazadone.Client born in [facility] and grew up in [facility], but moved around a lot, and spent a lot of time in [facility]. Parents were 59 years with father having [...] drugs and being very irresponsible and irrational. 04/16/2024 Other Client participated in individual psychotherapy related to his hx of anxiety and mild depression. Based on today's session continued pyschotherapy is recommended with no changes to treatment plan. Client presented to session well groomed and fully oriented with no risk of harm to self or others. Client verbal and engaged through out session. Reported upon presentation that he is better then he has been the previous two session. Noted that he has started to figure just how much had changed in the past month and what he had been dealing with. Client admitted that he needs to do a better job of examining self expectations. Remainder of session focused on having client examine and explore beliefs which have fuled and supported who he has become today. Admitted that he has cared too much due to childhood and having parents did not care. Client receptive to session feedback. Next session in two weeks. 77 year old male who presents [...] currently on Clonazapam and Trazadone.Client born in [facility] and grew up in [facility], but moved around a lot, and spent a lot of time in [facility]. Parents were 59 years with father having [...] drugs and being very irresponsible and irrational. 05/05/2024 Other Client particiapted in individual psychotherapy(CB T/Supportive) related to his hx of anxiety and depression. Based on today's session continued psychotherapy is recommended with no changes to treatment plan. Client presented to session well groomed and fully oriented with no risk of harm to self or others. Client verbal and engaged through out session with appropriate mood and affect. Reported upon presentation that he has been okay since last seen on 04.16.2024. Noted that he has been having some sleep problems, staying asleep. Believes Trazadone does not appear to be helping at all. Moreover has continued in setting boundaries with family and surprised at how empowering it feels. Session addressed client's hx of obsessing and anxiety. Conceded that he has struggled letting things go but believes she has done a better job since starting therapy. Next session in three weeks. 77 year old male who presents [...] it very helpful. Client currently sees Micheal Hortaoza for medication therapy; currently on Clonazapam and Trazadone.Client born in [facility] and grew up in [facility], but moved around a lot, and spent a lot of time in [facility]. Parents were 59 years with father having [...] drugs and being very irresponsible and irrational. 06/04/2024 Other Client participated in indiividual psychotherapy(CB T/Supportive related to his hx of anxiety and depression. Based on today's session continued psychotherapy is recommended with no changes to treatment plan. Client presented to session well groomed and fully oriented with no risk of harm to self or others. Client verbal and engaged though out session with appropriate mood and affect. Reported upon presentation that he has been all right since last seen on 05.05.2024. Added however that he had to go to urgent care (Friday night) due to experiencing some bleeding from right ear. Client further shared that he continues struggling accepting getting older and associated physical limitations. Spoke briefly about two grandsons and where they are in life. Primary focus of session challenging client's beliefs and how they have supported and fueled anxiety and depression. Admitted that he needs to be more accepting of who he is and stop caring so much. Client receptive to session feedback. Next session [...] currently on Clonazapam and Trazadone.Client born in [facility] and grew up in [facility], but moved around a lot, and spent a lot of time in [facility]. Parents were 59 years with father having [...] drugs and being very irresponsible and irrational. 07/07/2024 Other Client participated in individual psychotherapy (CBT/Supportive) related to his hx of anxiety and depression. Based on today's session continued psychotherapy is recommended with no changeds to treatment plan. Client presented to session well groomed and fully oriented with no risk of harm to self or others. Client verbal and engagd through out session. Reported upon presentation that he has been tired a lot since last seen on 06.04.2024. Added that he hurt his siatica nerve and had experienced some problems walking since last seen. Added that he is scheduled to see a doctor for his abck on the of this month and has been enjoying playing Bridge on Mondays. Youngest grandson appears to be stable with no concerns at the present time. Client expressed some concern over other grandson, who is hosting Thanksgiving dinner, not inviting him personally for Thanksgiving dinner. Remainder of session client spoke about childhood and relationship with parents and the impact it has had on his anxiety and depression. Client provided supportive therapy and encouragement to keep focusing on what he can control and let of what he cannot control. Next session in four weeks. 77 year [...] currently on Clonazapam and Trazadone.Client born in [facility] and grew up in [facility], but moved around a lot, and spent a lot of time in [facility]. 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 Parents were 59 years with father having [...] very irresponsible and irrational. Plan Of Treatment No Information Insurance Providers Payer Name Payer Address Payer Phone Subscriber Number Group Number Insured Name Patient Relationship to Insured Coverage Start Date Coverage End Date [place] [address] [place] [phone] [id number] NILDA BARILLAS Self - patient is the insured [employer] Supplemental [address] [place] [phone] [id number] NILDA BARILLAS Self - patient is the insured Medical (General) History Medical History History ICD Code Problems: Generalized anxiety disorder Mild recurrent major depression Persistent insomnia , Surgical History Surgery Date(Month/Year) Cataract surgery (00653) Tonsilectomy/adenoids Other Sinus surgery
--- OUTSIDE RECORDS SUMMARY | 2024-09-23 08:34 | XMS_ITS ---
Author Organization [facility] Address [address] [place] [address] Care Team Providers Care Backup Engineer Name Role Phone Sanju Jain DO Primary Care Provider Micheal Bustillos Unavailable [phone] REASON FOR VISIT Appointment Social History Sex Assigned At : Social History Observation Description Sex Assigned At Male Encounters Encounter Location Date Provider Diagnosis [place] [address] [facility] [address] [facility] [address] [place] [address] 09/01/2024 Micheal Almanza Plan Of Treatment No Information Progress Notes * NILDA BARILLASDOB:1945 ([age] yo M)Acc No.[id number]:09/01/2024 Patient:?ERANNILDA :1945???Age:79 Y???Sex:Male Address:[address], [place], [address] * true * Date:? 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
--- OUTSIDE RECORDS SUMMARY | 2024-09-23 08:34 | XMS_ITS ---
Author Organization [facility], Address [address] [place] [address] Care Team Providers Care Bottom Polisher Name Role Phone Sonny Yeung Primary Care Provider Jayro Solomon Unavailable [phone] Encounters Encounter Location Date Provider Diagnosis [facility] [address] [place] [address] 07/09/2024 Jayro Diaz PLAN OF TREATMENT No Information
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
--- OUTSIDE RECORDS SUMMARY | 2024-09-23 08:34 | XMS_ITS ---
Author Organization [facility] [employer] Address [address] [place] [address] Care Team Providers Care Black Belt Name Role Phone Sanju Jain DO Primary Care Provider Micheal Bustillos Unavailable [phone] Allergies No Known Allergies REASON FOR VISIT follow up visit, medication evaluation Medications Medication SIG (Take, Route, Frequency, Duration) Notes Start Date End Date Status clonazePAM 0.5 MG 1 tablet Oral Twice a day for 30 days As needed 08/05/2024 Active hydroCHLOROthiazide 12.5 MG Oral 12/09/2023 Active Fenofibrate 160 MG Oral 12/09/2023 Active Losartan Potassium 100 MG Oral 12/09/2023 Active buPROPion HCl ER (XL) 300 MG Oral 12/09/2023 Active Simvastatin 40 MG Oral 12/09/2023 A ctive Social History Sex Assigned At : Social History Observation Description Sex Assigned At Male Vital Signs Blood pressure systolic 156 mm Hg 08/05/20 24 Blood pressure diastolic 78 mm Hg 024 Heart Rate 69 /min 08/05/2024 Height 65.00 in 08/05/2024 Weight 185.0 lbs 08/05/2024 BMI 30.78 kg/m2 08/05/2024 Height-cm 165.10 cm 08/05/2024 Weight-kg 83.91 kg 08/05/2024 Encounters Encounter Location Date Provider Diagnosis [facility] [employer] [address] [place] [address] 08/05/2024 Micheal Almanza Generalized anxiety disorder F41.1 ; Major depressive disorder, recurrent, mild F33.0 and Other insomnia G47.09 Assessments Encounter Date Diagnosis (ICD Code) Assessment Notes Treatment Notes Treatment Clinical Notes Section Notes 08/05/2024 Generalized anxiety disorder (ICD-10 - F41.1) [...] Patient reports a change in pharmacy from [facility] to [facility] in [place] starting August 25. Plan: - Update the patient's pharmacy information in the medical record. - Ensure future prescriptions are sent to the correct pharmacy. 08/05/2024 Major depressive disorder, recurrent, mild (ICD-10 [...] Patient reports a change in pharmacy from [facility] to [facility] in [place] starting August 25. Plan: - Update the [...] Patient reports a change in pharmacy from [facility] to [facility] in [place] starting August 25. Plan: - Update the patient's pharmacy information in the medical record. - Ensure future prescriptions are sent to the correct pharmacy. Plan Of Treatment Medication Medication Name Sig Start Date Stop Date Notes clonazePAM 0.5 MG 1 tablet Oral Twice a day for 30 days Treatment Notes Assessment Notes Major depressive disorder, recurrent, mi ld on bupropion xl by pcp Next Appt Details Follow Up: 3 Months, Reason: f/u anxiety, depression Progress Notes * NILDA BARILLASDOB:1945 ([age] yo M)Acc No.[id number]:08/05/2024 Patient:?NILDA BARILLAS Provider:?NINOSKA LANG :1945???Age:79 Y???Sex:Male Sid e:08/05/2024 Address:[address] [place], [place] [id number] Pcp:Sanju Jain DO Subjective: * Chief Complaints: * ???Follow up visit, medicati on evaluation * HPI: ???Depression screening:? the note is transcribed using speech recognition software. It is a reflection of a visit with the patient. It might have some inaccuracy, including medication names and transcribing errors, though efforts have been made to correct them. Chief complaint - Anxiety, sleep disturbances, and general unwellness. The patient reports experiencing anxiety, particularly in situations where he feels a lack of control. His anxiety has been affecting his sleep, causing him to wake up after 3 or 4 hours and struggle to fall back asleep. He estimates getting around five to [id number] hours of sleep per night. Additionally, he reports feeling sick to his stomach and generally unwell. The patient describes a recent hunting trip with his son, after which he felt extremely tired and believes he may not have fully recovered from the exhaustion. He states that his day-to-day anxiety is stable, but he still experiences anxious moments. He credits a friend for helping him manage his anxiety through advice and support. Currently, the patient is taking clonazepam for anxiety and bupropion for depression. He inquires about the possibility of adjusting his clonazepam dosage schedule and whether the bupropion may have lost its effectiveness over time. He also mentions that his blood pressure readings tend to be higher at the clinic compared to readings taken at his primary care doctor's office. ?PHQ-9?Little interest or pleasure in doing things?Not at all,?Feeling down, depressed, or hopeless?Not at all,?Trouble falling or staying asleep, or sleeping too much?Nearly every day,?Feeling tired or having little energy?Several days,?Poor appetite or overeating?Nearly every day,?Feeling bad about yourself or that you are a failure, or have let yourself or your family down?Several days,?Trouble concentrating on things, such as reading the newspaper or watching television?Not at all,?Moving or speaking so slowly that other people could have noticed; or the opposite, being so fidgety or restless that you have been moving around a lot more than usual?Not at all,?Thoughts that you would be better off or of hurting yourself in some way?Not at all,?Total Score?8,?Interpretation?Mild Depression.?Depression Screening:?SAMI-7 (2018 Edition)?Feeling nervous, anxious, or on edge?More than half the days,?Not being able to stop or control worrying?Several days,?Worrying too much about different things?Not at all,?Trouble relaxing?Several days, Being so restless that it is hard to sit still?Several days,?Becoming easily annoyed or irritable?Not at all,?Feeling afraid as if something awful might happen?Not at all,?Total SAMI-7 Score?5,?If you checked any problems, how difficult have they made it for you to do your work, take care of things at home, or get along with other people??Not difficult at all,?Interpretation of Total?(5 to 9) Mild.?History of Presenting Problem:?Anxiety?Onset: years ago, Aggravated by: things he can't control, Associated Symptoms: worry, rumination, irritability..?Depression?stable.?Sleep disturbance?interrupted at times.?Psychotherapy?Samuel.?Past Medication history:? trazodone. * Medical History:? * Surgical History:? * Hospitalization/Major Diagno stic Procedure:? * Family History:?Father: rosales alvarado 100 yrs, Family history of sudden cardiac , Alcohol abuse , Bipolar disorder .?Mother: , Depressive disorder .?Brother: alive 70 yrs.?Sister: alive 75 yrs.?1 son(s) , 1 daughter(s) . .? * Medications:?TakingFenofibra te 160 MG Tablet Oral hydroCHLOROthiazide 12.5 MG Tablet Oral Losartan Potassium 100 MG Tablet Oral buPROPion HCl ER (XL) 300 MG Tablet Extended Release 24 Hour Oral Simvastatin 40 MG Tablet Oral clonazePAM 0.5 MG Tablet 1 tablet daily, 0.5 tablet daily as needed Oral Once a day As neededTaking Fenofibrate 160 MG Tablet Oral Taking hydroCHLOROthiazide 12.5 MG Tablet Oral Taking Losartan Potassium 100 MG Tablet Oral Taking buPROPion HCl ER (XL) 300 MG Tablet Extended Release 24 Hour Oral Taking Simvastatin 40 MG Tablet Oral Taking clonazePAM 0.5 MG Tablet 1 tablet daily, 0.5 tablet daily as needed Oral Once a day As neededDiscontinuedDoxycycline Hyclate 50 MG Capsule Oral Medication List reviewed and reconciled with the patientDiscontinued Doxycycline Hyclate 50 MG Capsule Oral Medication List reviewed and reconciled with the patient * Allergies:?N.K.D.A.no[Allerg ies Verified] Objective: * Vitals:?BP:156/78mm Hg, HR:6 9/min, Wt:185.0lbs, Wt-k.91 kg, Ht: 65.00 in, Ht-cm: 165.10 cm, BMI:30.78Index, Body Surface Area: 1.96. * Examination: ???Neurology: ?Cognition Assessment Tools Used?.?Psychiatry: ?Appearance:?well-groomed, well-nourished, ....?Affect / mood:?appropriate, full range.?Attention:?good.?Attitude:?cooperative.?Suicidal ideation:?none.?Memory status:?no impairment noted.?Degree of awareness of surroundings:?within normal limits.?Delusions:?no.?Hallucinations:?no.?Insight:?good.?Intellectual functioning:?no impairment noted.?Judgement:?good.?Orientation:?awake, alert and oriented x 3.?Perceptual disorders:?no perceptual disorder noted.?Psychomotor activity:?within normal range.?Speech / language:?appropriate pitch/modulation, clear and coherent, normal rate, volume, and articulation (RVR), proper grammar used.?Thought content:?appropriate.?Thought process:?intact.?General Examination: ???- Mental Status Examination: - The patient describes experiencing fluctuating anxiety levels, particularly heightened in situations perceived as uncontrollable. - Reports of sleep disturbances are noted, with the patient struggling to maintain sleep and averaging about 5 to 5.5 hours of sleep nightly. - Feelings of sickness and general malaise are expressed by the patient. - Ongoing low-grade depression is acknowledged by the patient, who however, emphasizes anxiety as the predominant concern. - The patient mentions improved coping mechanisms for anxiety, including discussions with the therapist Samuel and a focus on family life. - Vital Signs: - Blood pressure was recorded at 156 during the visit, with the patient recalling a previous measurement of 118/62 taken two weeks earlier at a different healthcare facility. Assessment: * Assessment: 1.?Generalized anxiety disor riley - F41.1 (Primary)???2.?Major depressive disorder, recurrent, mild - F33.0???3.?Other insomnia - G47.09??? 1. Anxiety:- Patient reports anxiety related to lack of control in certain situations, such as insurance changes. Anxiety is mostly stable but can be triggered by specific events.- Patient has been working with a therapist, Samuel, who has provided helpful coping strategies.Plan:- Continue current therapy sessions with Samuel.- Encourage the patient to practice coping strategies and focus on peace of mind.2. Insomnia:- Patient reports difficulty staying asleep, waking up after 3- 4 hours, and getting a total of 5-5.5 hours of sleep per night.- Patient inquires about the normalcy of waking up in the middle of the night at age 79.Plan:- Educate the patient on common sleep disturbances in older adults and potential contributing factors.- Adjust clonazepam dosing to 0.5 mg in the morning, 0.5 mg at noon, and 0.5 mg at night, for a total of 1.5 mg per day.- Monitor sleep quality and reevaluate the medication regimen as needed.3. Depression:- Patient has a history of low-grade depression (dysthymia) and is currently on bupropion.- Patient inquires about the potential need to change the medication due to long-term use.Plan:- Continue bupropion as prescribed.- Monitor depressive symptoms and discuss the potential need for medication adjustment in future visits if symptoms worsen or do not improve.Pharmacy change:- Patient reports a change in pharmacy from [facility] to [facility] in [place] starting August 25.Plan:- Update the patient's pharmacy information in the medical record.- Ensure future prescriptions are sent to the correct pharmacy. Plan: * Treatment: 2.?Major depressive disorder , recurrent, mild? Notes: on bupropion xl by pcp?? * Procedure Codes:?G2211 VISIT COMPLEXITY INHERENT TO ONGOING CARE RELATED TO A PATIENT'S SINGLE, SERIOUS CONDITION OR A COMPLEX CONDITION * Preventive Medicine:? ??Counseling:?BP Management:?FIRST HYPERTENSIVE BP READING FOLLOW-UP PLAN:?Follow-up 1 month Follow up with your PCP,?LIFESTYLE RECOMMENDATION:?Lifestyle education, REFERRAL TO ALTERNATIVE / PRIMARY CARE PROVIDER:?Referral to general medical service Recommended Nonpharmacologic Interventions (Lifestyle Modifications) - Weight ReductionA heart-healthy diet , such as Dietary Approaches to Stop Hypertension (DASH) Eating PlanDietary Sodium RestrictionIncreased Physical ActivityModeration in alcohol consumption.? * Follow Up:?3 Months (Reason: f/u anxiety, depression) * Billing Information: * Visit Code:? 51849 OFFICE OUTPATIENT VISIT 25 MINUTES DETAILED HISTORY AND EXAM/MODERATE MEDICAL DECISION MAKING. * Procedure Codes:? G2211 VISIT COMPLEXITY INHERENT TO ONGOING CARE RELATED TO A PATIENT'S SINGLE, SERIOUS CONDITION OR A COMPLEX CONDITION. * CTOR OF LOSS PREVENTION Sign off status: Completed true * Provider:?NINOSKA LANG Date:?07/2024 Generated for Nathaly trejo/Liz/Jaysmyumi on:?09/23/2024 08:33 AM DIRECTOR OF LOSS PREVENTION History and Physical Notes * HPI (History of Present Illness) Category Sub-Category Detail Notes Category Not es History of Presenting Problem Anxiety Onset: years ago, Aggravated by: things he can't control, Associated Symptoms: worry, rumination, irritability. Depression stable Sleep disturbance interrupted at times Psychotherapy Samuel Depression screening PHQ-9 Little inte rest or pleasure in doing things: Not at all Feeling down, depressed, or hopeless: No t at all Trouble falling or staying asleep, or sl eeping too much: Nearly every day Feeling tired or having little energy: S everal days Poor appetite or overeating: Nearly ever y day Feeling bad about yourself o r that you are a failure, or have let yourself or your family down: Several days Trouble concentrating on thi ngs, such as [...] or of hurting yourself in some way: Not at all Total Score: 8 Interpretation: Mild Depression Depression Screening SAMI-7 (2018 Edition) Feelin g nervous, anxious, or on edge: More than half the days Not being able to stop or control worryi ng: Several days Worrying too much about different things : Not at all Trouble relaxing: Several days Being so restless that it is hard to sit still: Several days Becoming easily annoyed or irritable: No t at all Feeling afraid as if something awful susan ht happen: Not at all Total SAMI-7 Score: 5 If you checked any problems, how difficult have they made it for you to do your work, take care of things at home, or get along with other people?: Not difficult at all Interpretation of Total: (5 to 9) Mild Examination Category Sub-Category Detail Notes Category Not es Neurology Cognition Assessment Tools Used Total score SLUMS: 23 Psychiatry Appearance: well-groomed, we ll-nourished, ... Attitude: cooperative Psychomotor activity: within normal rang e Attention: good Degree of awareness of surroundings: wit hin normal limits Orientation: awake, alert and wyatt ented x 3 Affect / mood: appropriate, full ra nge Speech / language: appropriate pitch/mo dulation, clear and coherent, normal rate, volume, and articulation (RVR), proper grammar used Insight: good Judgement: good Thought process: intact Thought content: appropriate Perceptual disorders: no perceptual diso rder noted Suicidal ideation: none Intellectual functioning: no impairment noted Memory status: no impairment noted Delusions: no Hallucinations: no General Examination - Mental Status Examination: - The patient describes experiencing fluctuating anxiety levels, particularly heightened in situations perceived as uncontrollable. - Reports of sleep disturbances are noted, with the patient struggling to maintain sleep and averaging about 5 to 5.5 hours of sleep nightly. - Feelings of sickness and general malaise are expressed by the patient. - Ongoing low-grade depression is acknowledged by the patient, who however, emphasizes anxiety as the predominant concern. - The patient mentions improved coping mechanisms for anxiety, including discussions with the therapist Samuel and a focus on family life. - Vital Signs: - Blood pressure was recorded at 156 during the visit, with the patient recalling a previous measurement of 118/62 taken two weeks earlier at a different healthcare facility.
--- OUTSIDE RECORDS SUMMARY | 2024-09-23 08:35 | XMS_ITS ---
Author Organization [facility] , Address [address] [place] [address] Care Team Providers Care Soccer Ball Assembler Name Role Phone Sonny Yeung Primary Care Provider Jayro Solomon Unavailable [phone] ALLERGIES No Known Allergies REASON FOR VISIT low back MEDICATIONS Medication SIG (Take, Route, Frequency, Duration) Notes Start Date End Date Status Fenofibrate Active hydroCHLOROthiazide Active clonazePAM Active buPROPion HCl Active Simvastatin Active metroNIDAZOLE Active Doxycycline Hyclate 100 MG 1 capsule Ora lly twice daily for 7 days 03/17/2024 Not-Taking Tylenol Active HYDROcodone-Acetaminophen 7.5-325 MG 1 tablet as needed Orally every 4-6 hrs for 7 days 02/02/2024 Not-Taking Meloxicam 15 MG 1 tablet with food Orally Once a day for 90 days 03/17/2024 Not-Taking methylPREDNISolone 4 MG as directed Oral ly on package for 6 days 07/21/2024 Not-Taking Losartan Potassium A ctive VITAL SIGNS BMI 28.57 kg/m2 08/19/2024 Height 66 in 08/19/2024 Weight 177 lbs 08/19/2024 Encounters Encounter Location Date Provider Diagnosis [facility], [address] [facility] [address] [place] [address] 08/19/2024 Jayro Diaz Other low back pain M54.59 ASSESSMENTS Encounter Date Diagnosis Assessment Notes Treatment Notes Treatment Clinical Notes 08/19/2024 Other low back pain (ICD-10 - M54.59) PLAN OF TREATMENT No Information Progress Notes * Examination Category Sub-Category Detail Notes General Examination GENERAL: Patient is a lert and cooperative. He moves about the room without significant difficulty. He does not walk with a list/limp NECK: No tenderness to pal pation. Mild loss of cervical lordosis. Cervical ROM reduced in EXT HEART: Regular rate and rhy thm LUNGS: Clear to auscultatio n in all [place] ABDOMEN: No tenderness to pal pation, bowel sounds present all four quadrants NEUROLOGIC: LE neurologic exam r eveals symmetric DTR's, intact sensation, 5+/5+ motor strength SKIN: No evidence of skin rashes or dermal lesions MUSCULOSKELETAL: Thoracic exam reveal s no tenderness to palpation, no spasm. Lumbar exam reveals a well-healed back incision, non-tender to touch. Lumbar ROM reveals FF 110 degrees, EXT 35 degrees, SB 45 degrees. He can heel and toe walk PSYCHIATRIC: Mood and affect appe ar normal HEENT: No masses, PERRLA, E OM intact, no nasal drainage, no lymphadenopathy JOINTS: Hip log roll testing negative. Hip ROM full. FABERE test negative HEMATOLOGIC: No evidence of exces sive bruising or bleeding
--- OUTSIDE RECORDS SUMMARY | 2024-09-23 08:35 | XMS_ITS | Clinical Summary ---
Author Organization [facility] Address [address] [place] [phone] Care Team Providers Care Gold Buyer Name Role Phone Cr Doyle MD Unavailable [phone] Sanju Jain DO Primary Care Provider [phone] Allergies Active Allergy Reactions Criticality Noted Date [...] 07/06/2024 Assessment & Plan (07/06/2024 10:52 AM [employer]): I talked with the patient about tinnitus. Typically it is due to hearing loss but there are other potential reasons for it. It can occur due to cervical strain or TMJ disorder. Also potentially due to tumors which are usually benign. Unfortunately there is no widely accepted or successful treatment for it. There are a lot of [id number] remedies which generally do not help and [...] 09/05/2023 Assessment & Plan (07/06/2024 10:51 AM [employer]): He does have pretty significant bilateral sensorineural hearing loss. It is pretty equivalent when comparing right to left. I think he should continue with amplification. 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 07/25/2022 Benign prostatic hyperplasia with urinary obstru ction 07/15/2022 Overview (07/15/2022): Added automatically from request for surgery [id number] Dyslipidemia 02/13/2018 Chest pain 02/13/2018 Essential hypertension 02/13/2018 NAKUL on CPAP 02/13/2018 Encounters Date Type Department Care Team Description 07/06/2024 10:30 AM [employer] Office Visit [facility] Otolaryngology [address] [place] [phone] Jarad Mares MD Tinnitus of right ear (Primary Dx); Sensorineural hearing loss (SNHL) of both ears 07/06/2024 10:00 AM [employer] Procedure visit [facility] Otolaryngology [address] [place] [phone] Alejandrina Dowd Sensorineural hearing loss (SNHL) of both ears (Primary Dx); Tinnitus of both ears from Last 3 Months Immunizations Name Administration Dates Next Due Moderna SARS-CoV-2 Monovalent Vaccination (12+ Y RS) 11/07/2020,10/10/2020 Surgical History Surgery Date Site/Laterality Comments CATARACT EXTRACTION 08/25/2020 - 08/24/2021 SINUS SURGERY 08/25/1997 - 08/24/1998 RECTAL SURGERY 08/25/1995 - 08/24/1996 PROSTATE SURGERY 08/25/2016 - 08/24/2017 Dr. Nick TOENAIL EXCISION TONSILLECTOMY LASIK BACK SURGERY Medical History Medical History Date Comments Hypertension Hyperlipidemia Sleep apnea Cataract 2020 Head concussion Erectile dysfunction Food sensitivity with gastrointestinal symptoms spicey food, raw veg, fried food Anxiety Depression Rosacea Tinnitus HL (hearing loss) Family History Medical History Relation Name Comments Cancer Brother Rheum arthritis Brother Heart attack Father Heart disease Father Rheum arthritis Father Rheum arthritis Mother Stroke Mother Rheum arthritis Sister Relation Name Status Comments Brother Alive Father Mother Sister Alive Social History Tobacco Use Types Packs/Day Years [...] on file Legal Sex Male 2:33 AM [employer] Gender Identity Not on file Sexual Orientation Not on file 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 Not on file Not on file Obstetrics History Last Filed Vital Signs Vital Sign Reading Time Taken Comments Blood Pressure 130/71 03/13/2023 11:01 AM CDT Pulse 69 03/13/2023 11:01 AM CDT Temperature 36.7 ??C (98 ??F) 04/11/2023 8:51 AM CDT Respiratory Rate 20 07/06/2024 10:29 AM [employer] Oxygen Saturation 98% 03/07/2023 12:09 PM CDT Inhaled Oxygen Concentration - - Weight 81.6 kg (180 lb) 07/06/2024 10:29 AM [employer] Height 167.6 cm (5' 6 ) 07/06/2024 10:29 AM [employer] Body Mass Index 29.05 07/06/2024 10:29 AM [employer] Plan of Treatment Health Maintenance Due Date Last Done Comments Depression Screening 1945 Hepatitis C Screening 1945 DTaP/Tdap/Td Vaccine (1 - Tdap) 1958 Hepatitis B Screening 1965 Well Visit 65+ 01/11/2012 Fall Risk Assessment 03/06/2024 03/06/2023, 02/14/20 18 Covid-19 Vaccine (2023-2 5 season) 2024 11/07/2020, 10/10/2020 Influenza Vaccine (#1) 2024 , 05/24/2019, 06/05/2018, Additional history exists Pneumococcal vaccine 65+ Completed 018, 06/10/2017, 01/11/2012, Additional history exists Zoster Vaccine Completed 06/23/2020, 04/06/2020 Medical Devices Implanted Type Area Alignment Specialist Device Identifier Shelf Expiration Date Model / Serial / Lot [employer] Srinivasan Ams Spectra 3cm Concealable Rear Tip Clothing Examiner Snapcone Prosthesis [id number] - [id number] Implanted:Qty: 1 on 03/06/2023 by Cr Doyle MD at [facility] N/A: Penis [employer] Srinivasan 10/22/2027 [id number] / / [id number] [employer]ivasan Ams 700 Lgx Ms Pump 18cm 3 Piece Inflatable Preconnect [employer]rap[employer]ic [id number] - [id number] Implanted:Qty: 1 on 03/06/2023 by Cr Doyle MD at [facility] N/A: Penis [employer] Srinivasan 11/17/2024 [id number] / / [id number] [employer]ivasan Ams 700 Ms Pump Preconnect Inflatable Spherical [place] [id number] - [id number] Implanted:Qty: 1 on 03/06/2023 by Cr Doyle MD at [facility] N/A: Penis [employer] Srinivasan 03/04/2024 [id number] / / [id number] Insurance JAYJAY RICHARD [id number] MEDICARE FOR[facility]LY [facility] MEDICARE SUPPLEMENT INSURANCE MEDICARE CIG MEDICARE SUPPLEMENT INSURANCE MEDICARE Advance Directives For more information, please contact: [phone] * Full Code (Latest Code Status on File) Date Activated Date Inactivated Comments 03/06/2023 1:00 PM 03/07/2023 4:35 PM * Full Code Date Activated Date Inactivated Comments 07/25/2022 3:11 PM 07/26/2022 7:31 PM Care Teams Gold Buyer Relationship Specialty Start Date End Date Sanju Jain DO [address] [place] [address] PCP - General Internal Medicine 06/21/24 [place] [address] [place] [address] Consulting Physician Urology 03/07/23
--- OUTSIDE RECORDS SUMMARY | 2024-09-23 08:35 | XMS_ITS | Patient Health Record ---
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 Name Role Phone Sonny Yeung Primary Care Provider Jayro Solomon Unavailable [phone] Vanesa Watts Unavailable [phone] ALLERGIES No Known Allergies RESULTS Component Value Reference Range Notes Electrocardiogram (EKG) Reviewed date:01/15/2024 02:24:04 PM Interpretation: Performing Lab: Notes/Report: X ray : Lumbar spine 5 views , AP, Lateral, Spot, Flexion and Extension Reviewed date:01/07/2024 01:39:56 PM Interpretation:[id number] Performing Lab: Notes/Report: 1145 X ray : Chest 2 views, PA, L ateral Reviewed date:01/15/2024 02:24:13 PM Interpretation: Performing Lab: Notes/Report: REASON FOR REFERRAL Reason DIAGNOSES: s/p LDL a nd disc L4-5 3 times per week for 3 weeks eval and treat, exercise, modalities per therapist's discretion; [facility] Referral Organization [facility] Referring Provider First Name Jayro Referring Provider Last Name Emily Referring Provider Speciality Orthopedic Surgery Referred Provider Specialty Physical [facility] Referral Priority Routine Reason DIAGNOSES: L4-5 lami and disc 3 times per week for 3 weeks eval and treat, exercise, modalities per therapist's discretion; [facility] Referral Organization [facility] Referring Provider First Name Jayro Referring Provider Last Name Emily Referring Provider Speciality Orthopedic Surgery Referred Provider Specialty Physical The [facility] Referral Priority Routine Reason DIAGNOSES: s/p L4-5 lami and disc on the right, SI enthesopathy, back pain/strain, DDD, radiculopathy 3 times per week for 3 weeks eval and treat, exercise, modalities per therapist's discretion; [facility] sacroiliac mobilization/stabilization Referral Organization [facility] Referring Provider First Name Jayro Referring Provider Last Name Emiyl Referring Provider Speciality Orthopedic Surgery Referred Provider Specialty Physical The [facility] Referral Priority Routine MEDICATIONS Medication SIG (Take, Route, Frequency, Duration) Notes Start Date End Date Status Fenofibrate Active hydroCHLOROthiazide Active metroNIDAZOLE Active clonazePAM Active Doxycycline Hyclate 100 MG 1 capsule Ora lly twice daily for 7 days 03/17/2024 Not-Taking Tylenol Active HYDROcodone-Acetaminophen 7.5-325 MG 1 tablet as needed Orally every 4-6 hrs for 7 days 02/02/2024 Not-Taking methylPREDNISolone 4 MG as directed Oral ly on package for 6 days 07/21/2024 Not-Taking Meloxicam 15 MG 1 tablet with food Orally Once a day for 90 days 03/17/2024 Not-Taking buPROPion HCl Active Losartan Potassium A ctive Simvastatin Active PROBLEMS Problem Type ICD Code Onset Dates Problem Status W/U Status Risk SNOMED Code Notes Problem HNP (herniated nucleus pulposus), lumbar (M51.26) Active confirmed Displacement of lumbar intervertebral disc without myelopathy (02864600) 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 Lumbosacral spondylosis without myelopathy (63313470) Problem DDD (degenerative disc disease), lumbar (M51.36) Active confirmed Degenerative disc disease (77854950) VITAL SIGNS Temperature 97.0 degrees Fahrenheit 04/07/2024 Height 66 in 08/19/2024 Weight 177 lbs 08/19/2024 BMI 28.57 kg/m2 08/19/2024 PROCEDURES Procedure Date Ordered Date Performed Result Body Sit e Lumbar Microdiscectomy 01/07/2024 02/03/2024 medic are/cigna supplement no auth Encounters Encounter Location Date Provider Diagnosis [facility] [place] [facility] [address] [place] [address] 01/07/2024 Jayro Diaz Lumbar stenosis with neurogenic claudication M48.062 ; HNP (herniated nucleus pulposus), lumbar M51.26 ; Lumbar radiculopathy M54.16 ; 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 ; DDD (degenerative disc disease), lumbar M51.36 and Preop testing Z01.818 [facility] [address] [address] 02/18/2024 Jayro Emily Aftercare following surgery of the musculoskeletal system, NEC Z47.89 [facility] [address] [address] 03/17/2024 Jayro Emily Aftercare following surgery of the musculoskeletal system, NEC Z47.89 [facility] [address] [address] 03/22/2024 Jayro Emily Aftercare following surgery of the musculoskeletal system, NEC Z47.89 [facility] [address] [address] 04/07/2024 Jayro Emily Aftercare following surgery of the musculoskeletal system, NEC Z47.89 [facility], [address] [place] [address] 05/19/2024 Jayro Emily Other low back pain M54.59 [facility] [address] [address] 07/09/2024 Jayro Emily [facility] [address] [address] 07/21/2024 Jayro Emily Other low back pain M54.59 ; Back strain S39.012A ; Myalgia, other site M79.18 ; Arthrodesis status Z98.1 ; Disc Degeneration, Lumbar Region with Leg Pain M51.361 and 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 [facility] [address] [address] 08/19/2024 Jayro Emily Other low back pain M54.59 [facility] [address] [place] [address] 02/03/2024 Jayro Joshibot Lumbar stenosis with neurogenic claudication M48.062 ; HNP (herniated nucleus pulposus), lumbar M51.26 and Lumbar radiculopathy M54.16 [facility] [address] [place] [address] [place] [address] 02/03/2024 Vanesa Jayroxannmarion Lumbar stenosis with neurogenic claudication M48.062 ; HNP (herniated nucleus pulposus), lumbar M51.26 and Lumbar radiculopathy M54.16 [facility] [address] [place] [address] 01/15/2024 Jayro Diaz [facility] [address] [place] [address] 01/20/2024 Jayro Diaz [facility] [address] [place] [address] 02/02/2024 Jayro Diaz [facility] [address] [place] [address] 02/10/2024 Jayro Diaz [facility] [address] [place] [address] 06/21/2024 Jayro Diaz ASSESSMENTS Encounter Date Diagnosis Assessment Notes Treatment Notes Treatment Clinical Notes 01/07/2024 Lumbar stenosis with neurogenic claudication (ICD-10 - M48.062) 01/07/2024 HNP (herniated nucle us pulposus), lumbar (ICD-10 - M51.26) 02/18/2024 Aftercare following surgery of the musculoskeletal system, NEC (ICD-10 - Z47.89) 03/17/2024 Aftercare following surgery of the musculoskeletal system, NEC (ICD-10 - Z47.89) 03/22/2024 Aftercare following surgery of the musculoskeletal system, NEC (ICD-10 - Z47.89) 04/07/2024 Aftercare following surgery of the musculoskeletal system, NEC (ICD-10 - Z47.89) 05/19/2024 Other low back pain (ICD-10 - M54.59) 07/21/2024 Other low back pain (ICD-10 - M54.59) 08/19/2024 Other low back pain (ICD-10 - M54.59) 02/03/2024 Lumbar stenosis with neurogenic claudication (ICD-10 - M48.062) 02/03/2024 Lumbar stenosis with neurogenic claudication (ICD-10 - M48.062) 01/07/2024 Lumbar radiculopathy (ICD-10 - M54.16) 07/21/2024 Back strain (ICD-10 - S39.012A) 02/03/2024 HNP (herniated nucle us pulposus), lumbar (ICD-10 - M51.26) 02/03/2024 HNP (herniated nucle us pulposus), lumbar (ICD-10 - M51.26) 01/07/2024 Facet degeneration o f lumbar region (ICD-10 - M47.816) 07/21/2024 Myalgia, other site (ICD-10 - M79.18) 02/03/2024 Lumbar radiculopathy (ICD-10 - M54.16) 02/03/2024 Lumbar radiculopathy (ICD-10 - M54.16) 01/07/2024 DDD (degenerative di sc disease), lumbar (ICD-10 - M51.36) 07/21/2024 Arthrodesis status (ICD-10 - Z98.1) 01/07/2024 Preop testing (ICD-1 0 - Z01.818) 07/21/2024 Disc Degeneration, Lumbar Region with Leg Pain (ICD-10 - M51.361) 07/21/2024 Facet degeneration o f lumbar region (ICD-10 - M47.816) 03/17/2024 Other PLAN OF TREATMENT Pending Test Test Name Order Date CBC With Differential/Platelet PT AND PTT 01/07/2024 Chem-Comprehensive 01/07/2024 Insurance Providers Payer Name Payer Address Payer Phone Subscriber Number Group Number Insured Name Patient Relationship to Insured Coverage Start Date Coverage End Date Medicare [place] [address] [address] [place] [address] [id number] Louie Snowden Self - patient is the insured [employer] Supplemental Benefits [address] [address] [place] [address] [phone] [id number] Louie Snowden Self - patient is the insured MEDICAL (GENERAL) HISTORY Medical History History ICD Code Hypertension Coronary artery disease Anemia Arthritis Head injury Neck pain Back pain Numbness in feet Spinal stenosis BPH Depression Anxiety Denies being hospitalized for psychiatri c condition Denies h/o drug/chemical dependency Surgical History Surgery Date(Month/Year) Prostate/TURP Sinus Tonsils Saurabh cataracts Penile implant L4-5 LDL, L4-5 disc 02/03/2024
--- NOTE | 2024-10-20 09:25 | WPDSLEEPSTUD ---
Sleep Study Date of Study: 09/23/24 Ordering Provider: Sanju Jain DO Interpreting Physician: Katerin Bearden MD Sleep Study Type: Split Polysomnogram Height: 1.68 m Weight: 81.647 kg Body Mass Index: 29.0 Neck Circumference (inches): 17.25 [place]: 11 Reason for Sleep Study Known NAKUL; Hypersomnolence, witnessed apneas * 06/13/08 PSG AHI 28.9; CPAP titration - optimal pressure of 16 cm. Patient currently wears a S/M Reggie F&P FFM. Sleep History Louie Snowden is a 79year-old man who reports that he stops breathing at night. He has obstructive sleep apnea and has used CPAP. He is being retested. He frequently awakens from sleep feeling short of breath. He rarely wakes at night with heartburn, belching or coughing.??He frequently snores, and frequently snores loudly enough that others complain. He occasionally has trouble sleeping when he has a cold. He constantly wakes up gasping for breath during the night. He constantly has breathing problems at night. He never sweats excessively at night. He never notices his heart pounding or beating irregularly during the night. He constantly falls asleep during the day. He constantly falls asleep involuntarily, never falls asleep while driving. He never experiences loss of muscle tone with strong emotion. He never has daytime difficulty at work due to excessive sleepiness. He never feels paralyzed on waking or falling asleep. He never experiences vivid dreams upon waking or falling asleep. He never feels afraid of going to sleep. He occasionally has nightmares. He never recalls his dreams. He frequently has thoughts racing through his mind. He frequently feels sad or depressed. He constantly feels anxiety. He occasionally notices parts of his body jerk. He constantly kicks during the night. He occasionally feels crawling or aching feelings in his legs. He never feels leg pain at night. He never has morning jaw pain, frequently grinds his teeth at night. He constantly feels bothered by pain during the day, occasionally awakened by pain during the night. He constantly wakes up feeling stiff in the morning, and he rarely wakes feeling sore or achy. He occasional awakens with pain in his neck, spine, or joints. he has fatigue, insomnia and frequently feels tense. Normal bedtime is 11:00 p.m., falling asleep within 4-5 minutes, waking 3 times most nights. when he awakens at night, he may read or perform housework. Wake time is 8:30 a.m.. He typically gets between 4 or 5 hours of sleep per night. He takes naps in the day, although a short nap lasting 10-15 minutes is not refreshing. He is drowsy for 3 hours after waking Habits:??Tobacco: never smoker Caffeine: 1 coke per day. Alcohol: none Recreational substances: none [facility] Past Medical History Medical History (Updated 10/20/24 @ 09:40 by Katerin Bearden MD) Obstructive sleep apnea Hx of adenomatous colonic polyps Irritable bowel syndrome with constipation Family history of pityriasis rosea Hypertension Hyperlipidemia Anxiety Family History Family History Father Family history of alcoholism Family history of cardiovascular disease Mother Cerebrovascular accident Other Family history of premature coronary heart disease Hypertension Social History Social History Smoking status: Never smoker Second hand tobacco smoke exposure: No Alcohol intake: current Current Housing: Decline to Answer Concerned About Future Housing: Decline to Answer Difficulty Paying Gas/Electric Bills: Decline to Answer Difficulty Paying for Meds: Decline to Answer Currently Unemployed: Decline to Answer Education: Decline to Answer Difficulty w/ Childcare or Family Care: Decline to Answer Living arrangements: with family Spiritual care concerns: No Medications Home Medications ?Medication ?Instructions ?Recorded ?Confirmed ?Type clonazepam 0.5 mg tablet 0.5 mg PO TID PRN Anxiety 07/10/19 07/20/24 History oxymetazoline 1 % topical cream 1 applic topical DAILY 01/21/23 07/20/24 History losartan 100 mg tablet See Rx Instructions .Route 01/06/24 07/20/24 Rx .COMPLEX #90 tabs simvastatin 40 mg tablet 40 mg PO .QHS #90 tabs 01/06/24 07/20/24 Rx bupropion HCl 300 mg 24 hr tablet, 300 mg PO QAM #90 tabs 05/27/24 07/20/24 Rx extended release ofloxacin 0.3 % ear drops 10 drp EACH EAR DAILY 7 days #10 mL 05/30/24 07/20/24 Rx gentamicin 0.3 % eye drops 1 drp ophthalmic (eye) Q4H #5 mL 08/19/24 Rx azithromycin 250 mg tablet See Rx Instructions PO .COMPLEX #6 08/26/24 Rx (Zithromax Z-George) tabs benzonatate 200 mg capsule 200 mg PO TID PRN cough #30 caps 08/26/24 Rx hydrochlorothiazide 12.5 mg tablet See Rx Instructions .Route 09/02/24 Rx .COMPLEX #90 tabs zaleplon 5 mg capsule 5 mg PO QHS PRN sleep #1 cap 09/23/24 Rx fenofibrate 160 mg tablet 160 mg PO DAILY #90 tabs 10/12/24 Rx Sleep Procedure A split night polysomnogram using the [employer] multi-channel system recorded the standard physiologic parameters including EEG, EOG, submentalis EMG, anterior tibialis EMG, EKG, body position, nasal and oral airflow using nasal pressure sensor and thermistor. Respiratory parameters of chest and abdominal movements were recorded with Respiratory Inductance Plethysmography belts. Oxygen saturation was recorded by pulse oximetry. Video monitoring was also performed. Sleep stages, periodic limb movements, and EEG arousals were scored in 30 second epochs according to the criteria of the AASM Scoring Manual. The Apnea-Hypopnea Index was calculated using CMS guidelines for definition of hypopnea while scoring respiratory events. After the baseline portion the patient met criteria for a titration with an AHI of 14 and desaturation to 85%. He used a medium ResMed F30 fullface mask with heated humidity, was titrated through CPAP pressures 9 cm, 11 cm and 13 cm as the highest pressure. At CPAP 13 cm, the patient spent 27 minutes in bed, 5 minutes awake, 5 minutes in non-REM and 17 minutes in REM. The sleep efficiency was 81.5%. There were 2 mixed apneas and 3 hypopneas for an overall apnea-hypopnea index of 13.6, overestimated due to air leak. Lowest saturation 90%. He had REM mainly in the left lateral position. he said that he avoids supine sleep at home. Sleep Architecture During the diagnostic portion of the study, the total recording time was 196.7 minutes. The total sleep time was 150.0 minutes. Sleep latency was 5.7 minutes. REM latency was 70.5 minutes. Sleep Efficiency was 76.3%. The patient had 21 awakenings for an awakening index of 8.4. Wake after sleep onset time was 41.0 minutes. The patient spent 24.0 minutes, 16.0% of total sleep time in Stage N1. The patient spent 85.0 minutes, 56.7% in Stage N2. The patient spent 0.0 minutes, 0.0% in Stage N3. The patient spent 41.0 minutes, 27.3% in Stage REM sleep. At 01:51:35 AM the patient was placed on PAP treatment and was titrated at pressures ranging from 9 cm to 11 cm and 13 cm. During the treatment portion of the study, the total recording time was 267.3 minutes. The total sleep time was 213.0 minutes. Sleep latency was 16.0 minutes. REM latency was 86.0 minutes. Sleep Efficiency was 79.7%. Wake after Sleep Onset time was 38.5 minutes. The patient spent 32.0 minutes, 15.0% of total sleep time in Stage N1. The patient spent 129.0 minutes, 60.6% in Stage N2. The patient spent no time in Stage N3. The patient spent 52.0 minutes, 24.4% in Stage REM. Respiratory Analysis During the diagnostic portion of the study, the patient had 19 hypopneas, 10 obstructive apneas, 4 mixed apneas, and 2 central apneas for an overall Apnea Hypopnea Index of 14.0 events per hour. The REM Apnea Hypopnea Index was 5.9. The NREM Apnea Hypopnea Index was 17.1. The patient had a Central Apnea Hypopnea Index of 0.8. There were no Respiratory Effort Related Arousals. The Respiratory Disturbance Index is 14.0 events per hour. There was no evidence of Sammy-Reis Respirations. During the treatment portion of the study, the patient had 15 hypopneas, no obstructive apneas, 4 mixed apneas, and 12 central apneas for an overall Apnea Hypopnea Index of 8.7 events per hour. The REM Apnea Hypopnea Index was 9.2. The NREM Apnea Hypopnea Index was 8.6. The patient had a Central Apnea Hypopnea Index of 3.4. There were no Respiratory Effort Related Arousals. The Respiratory Disturbance Index is 9.0 events per hour. There was no evidence of Sammy-Reis Respirations. Arousals During the diagnostic portion of the study, there were a total of 50 arousals for an arousal index of 20.0. There were 16 respiratory arousals for an index of 6.4. There were 4 periodic limb movement arousals for an index of 1.6. There were 9 isolated limb movement arousals for an index of 3.6. There were 18 spontaneous arousals for an index of 7.2. During the treatment portion of the study, there were a total of 154 arousals for an index of 43.4. There were 17 respiratory arousals for an index of 4.8. There were 87 periodic limb movement arousals for an index of 24.5. There were 5 isolated limb movement arousals for an index of 1.4. There were 21 spontaneous arousals for an index of 5.9. Periodic Limb Movements During the diagnostic portion of the study, the patient had 32 isolated limb movements with an index of 12.8. The patient had 16 periodic limb movements with an index of 6.4. The patient had a total of 48 limb movements with a total limb movement index of 19.2. During the treatment portion of the study, the patient had 32 isolated limb movements with an index of 9.0. The patient had 236 periodic limb movements with an index of 66.5. The patient had a total of 268 limb movements with a total limb movement index of 75.5. Oximetry Data During the diagnostic portion of the study, the patient had an average oxygen saturation of 95% in wake with a minimum oxygen saturation of 86% and a maximum oxygen saturation of 99%. The patient had an average oxygen saturation of 93.3% in sleep with a minimum oxygen saturation of 85% and a maximum oxygen saturation of 98%. The patient had 34 oxygen desaturations resulting in an Oxygen Desaturation Index of 13.6. The patient spent 1.6 minutes, 0.8% of total sleep time with an oxygen saturation less than 88%. During the treatment portion of the study, the patient had an average oxygen saturation of 94.6% in wake with a minimum oxygen saturation of 85% and a maximum oxygen saturation of 98%. The patient had an average oxygen saturation of 93.6% in sleep with a minimum oxygen saturation of 87% and a maximum oxygen saturation of 98%. The patient had 25 oxygen desaturations resulting in an Oxygen Desaturation Index of 7.0. The patient spent 1.4 minutes, 0.5% of total sleep time with an oxygen saturation less than 88%. Snoring Profile He had moderate snoring, eliminated during the titration. Cardiac Profile During the diagnostic portion of the study, the EKG showed normal sinus rhythm. The average pulse rate was 60 bpm. The minimum pulse rate was 54 bpm. The maximum pulse rate was 80 bpm. No arrhythmias noted. During the treatment portion of the study, the EKG showed normal sinus rhythm. The average pulse rate was 59.9 bpm. The minimum pulse rate was 55 bpm. The maximum pulse rate was 76 bpm. No arrhythmias noted. EEG Profile EEG was unremarkable, no evidence of seizures. Assessment and Plan Assessment and Plan (1) Obstructive sleep apnea: Code(s): G47.33 - Obstructive sleep apnea (adult) (pediatric) Status: Acute Assessment and Plan: This split night sleep study on 09/23/2024 shows obstructive sleep apnea, apnea-hypopnea index is 14 with desaturation to 80 5%, and he had a medical comorbidity of hypertension so proceeded to split night study with CPAP titration. He improved significantly on CPAP 13 cm. He had REM in the left lateral position. There was an air leak while using CPAP 13, this over estimated the apnea-hypopnea index. CPAP 13 still appears to be effective. At CPAP 13 cm, the patient spent 27 minutes in bed, 5 minutes awake, 5 minutes in non-REM and 17 minutes in REM. The sleep efficiency was 81.5%. There were 2 mixed apneas and 3 hypopneas for an overall apnea-hypopnea index of 13.6, overestimated due to air leak. Lowest saturation 90%. The patient should be prescribed CPAP 13 cm using a medium ResMed F30 fullface mask which she really liked during this study. His ResMed equipment as well as tubing, filters and reservoir. This should be used with all episodes of sleep. Compliance should be reviewed within 31-90 days of starting therapy for usage greater than 4 hours per night greater than 70% of the nights. The patient should be asked about symptoms such as excessive daytime sleepiness, quality of sleep, decreased nocturia, increased mental functioning such as memory, mood, and concentration. He complaints of bruxism which was not seen on this study. Treating obstructive sleep apnea can decreased bruxing. He should be asked about this symptom at his compliance visit. He had no increase in arousals due to leg movements during the study. His sleep history indicates that he constantly kicks excessive kicking at night, and he occasionally has uncomfortable feelings in his legs at night. His ferritin has been high on several occasions. The most recent ferritin level was 774 ng/ml on 02/28/2024, normal ferritin level is below 264 ng/ml. His high ferritin indicates that iron deficiency anemia is not the cause of his excessive leg movements during sleep. There are nonpharmacologic methods to treat limb movements including daily exercise, stretching calf muscles before bed, avoiding excessive amounts of caffeine and alcohol, vitamin B supplementation, magnesium lotion massaged into legs before bed, and use of a weighted blanket. Pharmacologic therapy is very effective for restless legs syndrome and limb movements during sleep and may include [id number] voltage-gated calcium channel ligands such as gabapentin which is preferable to dopaminergic agents which can have augmentation. Other treatments can include opioids and benzodiazepines. Data The data obtained during this sleep study is adequate for interpretation. Certification This sleep study has been reviewed by a board certified sleep medicine physician.
[2024-10-20 14:49] VITALS: BMI 29.0
== END 2024-09-24 06:57 | disposition home or self-care (01) ==
LOC: ANHCSM 08:24
PROVIDERS: PCP Internal Medicine; Visit Provider Internal Medicine
DX: G47.30 Sleep apnea, unspecified (principal); G47.33 Obstructive sleep apnea (adult) (pediatric)
CPT/HCPCS: 95811

== ENCOUNTER 2025-01-25 07:55 | Outpatient (CLI) | payer MEDICARE, SELFPAY ==
--- OUTSIDE RECORDS SUMMARY | 2025-01-25 08:01 | XMS_ITS ---
Author Organization [facility] , Address [address] [place] [address] Care Team Providers Care Handkerchief Maker Name Role Phone Sonny Yeung Primary Care Provider Jayro Solomon Unavailable [phone] ALLERGIES No Known Allergies REASON FOR VISIT [...] Diagnosis [facility], [address] [facility] [address] [place] [address] 08/19/2024 Jayor Diaz Other low back pain M54.59 ASSESSMENTS [...]
--- OUTSIDE RECORDS SUMMARY | 2025-01-25 08:01 | XMS_ITS | Referral Summary ---
Author Organization [facility] Address [address] [place] [id number] Care Team Providers Care Credit Adjuster Name Role Phone Cr Doyle MD Unavailable [phone] Sanju Jain DO Primary Care Provider [phone] Encounters Date Type Department Care Team Description 12/07/2024 2:30 PM CDT Lab [address] [address] Prostate cancer screening 12/07/2024 1:40 PM CDT Office Visit [facility]) - [facility] Urology [id number] [place] [address] Medical Office Building [address] [place] [address] Cr Doyle MD Follow-up exam (Primary Dx); Prostate cancer screening; S/P insertion of penile implant from Last 3 Months Allergies Active Allergy [...] 07/06/2024 Assessment & Plan (07/06/2024 10:52 AM RECORD LIBRARIAN): I talked with the patient about tinnitus. Typically it is due to hearing loss but there are other potential reasons for it. It can occur due to cervical strain or TMJ disorder. Also potentially due to tumors which are usually benign. Unfortunately there is no widely accepted or successful treatment for it. There are a lot of [id number] remedies which generally do not help and [...] 09/05/2023 Assessment & Plan (07/06/2024 10:51 AM RECORD LIBRARIAN): He does have pretty significant bilateral sensorineural hearing loss. It is pretty equivalent when comparing right to left. I think he should continue with amplification. 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 Not on file Not on file Last Filed Vital Signs Vital Sign Reading Time Taken Comments Blood Pressure 130/71 03/13/2023 11:01 AM CDT Pulse 69 03/13/2023 11:01 AM CDT Temperature 36.7 C (98 F) 04/11/2023 8:51 AM CDT Respiratory Rate 20 07/06/2024 10:29 AM RECORD LIBRARIAN Oxygen Saturation 98% 03/07/2023 12:09 PM CDT Inhaled Oxygen Concentration - - Weight 81.6 kg (180 lb) 07/06/2024 10:29 AM RECORD LIBRARIAN Height 167.6 cm (5' 6) 07/06/2024 10:29 AM RECORD LIBRARIAN Body Mass Index 29.05 07/06/2024 10:29 AM RECORD LIBRARIAN Plan of Treatment Not on file Medical Devices Implanted Type Area Special Events Coordinator Device Identifier Shelf Expiration Date Model / Serial / Lot [employer] Srinivasan Ams Spectra 3cm Concealable Rear Tip Gas Line Repairer Snapcone Prosthesis [id number] - [id number] Implanted:Qty: 1 on 03/06/2023 by Cr Doyle MD at [facility] N/A: Penis [employer] Srinivasan 10/22/2027 [id number] / / [id number] [employer] Srinivasan Ams 700 Lgx Ms Pump 18cm 3 Piece Inflatable Preconnect [employer] [id number] - [id number] Implanted:Qty: 1 on 03/06/2023 by Cr Doyle MD at [facility] N/A: Penis [employer] Srinivasan 11/17/2024 [id number] / / [id number] [employer] Srinivasan Ams 700 Ms Pump Preconnect Inflatable Spherical [place] [id number] - [id number] Implanted:Qty: 1 on 03/06/2023 by Cr Doyle MD at [facility] N/A: Penis [employer] Srinivasan 03/04/2024 [id number] / / [id number] Procedures Procedure Name Priority Date/Time Associated Diagnosis Comments PSA SCREEN Routine 12/07/2024 2:51 PM CDT Prostate cancer screening MEASURE POST VOID RESIDUAL Routine 12/07/2024 1:50 PM CDT Follow-up exam from Last 3 Months Results * PSA screen (12/07/2024 2:51 PM CDT) PSA-Total 4.61 <=6.20 ng/mL Comment: Interpretive Data AGE SEX REFERENCE INTERVAL 0 minutes-150 years Female None 0 minutes-49 years Male None 50-59 years Male 0-3.90 60-69 years Male 0-5.40 70-79 years Male 0-6.20 80-150 years Male 0-6.20 The Bhaskar PSA Total assay procedure was used. Results from different manufacturers or methods may not be comparable. Serial testing should be performed using the same method. Current interpretive data last revised 21. Blood 12/07/2024 2:51 PM CDT 12/07/2024 6:36 PM CDT us Cr Doyle MD LAB BLOOD ORDERABLES Fi nal Result ERAN [address] Department [place] [address] * Measure post void residual (12/07/2024 1:50 PM CDT) Narrative Renae Garcia LPN - 12/07/2024 1:50 PM CDT Measurement of post-voiding residual urine and/or bladder capacity by ultrasound, non-imaging. PVR = 57 mL us Cr Doyle MD NURSING ASSESSMENTS Fin al Result from Last 3 Months Insurance [employer] MEDICARE SUPPLEMENT INSURANCE MEDICARE MEDICARE [facility] MEDICARE SUPPLEMENT MEDICARE [facility] Address: [id number] [place] [address] [facility] MEDICARE SUPPLEMENT Advance Directives For more information, please contact: [phone] * Full Code (Latest Code Status on File) Date Activated Date Inactivated Comments 03/06/2023 1:00 PM 03/07/2023 4:35 PM * Full Code Date Activated Date Inactivated Comments 07/25/2022 3:11 PM 07/26/2022 7:31 PM Care Teams Credit Adjuster Relationship Specialty Start Date End Date Sanju Jain DO [address] [facility] [address] [place] [address] PCP - General Internal Medicine 06/21/24 [place] [id number] [facility] [address] [place] [address] Consulting Physician Urology 03/07/23
--- OUTSIDE RECORDS SUMMARY | 2025-01-25 08:01 | XMS_ITS | Patient Health Record ---
Author Organization [facility] Address [address] [facility] [address] [place] [address] Care Team Providers Care Materials Recycler Name Role Phone Sanju Jain DO Primary Care Provider Micheal Bustillos Unavailable [phone] Samuel Kelsey Unavailable [phone] Letty Stockton Unavailable [phone] Allergies No Known Allergies Reason For Referral No Information Medications Medication SIG (Take, Route, Frequency, Duration) Notes Start Date End Date Status Losartan Potassium 100 MG Oral 12/09/2023 Active buPROPion HCl ER (XL) 300 MG Oral 12/09/2023 Active Simvastatin 40 MG Oral 12/09/2023 A ctive clonazePAM 0.5 MG 1 tablet Oral Twice a day for 30 days As needed 12/14/2024 Active Fenofibrate 160 MG Oral 12/09/2023 Active hydroCHLOROthiazide 12.5 MG Oral 12/09/2023 Active Immunizations Vaccine Route Administration Date Status Comme nts Zoster Unknown 04/06/2020 Administered Zoster Unknown 06/23/2020 Administered Pneumococcal polysaccharide PPV23 Unknown 01/11/2012 Ad ministered Pneumococcal polysaccharide PPV23 Unknown 06/05/2018 Ad ministered Pneumococcal conjugate PCV 13 Unknown 12/12/2011 Admini stered Pneumococcal conjugate PCV 13 Unknown 06/10/2017 Admini stered Moderna Covid-19 Vaccine 1st dose Unknown 10/10/2020 Ad ministered Moderna Covid-19 Vaccine 1st dose Unknown 11/07/2020 Ad ministered Infuenza, trivalent, recombi nant, preservative free Unknown 06/05/2018 Administered Infuenza, trivalent, recombi nant, preservative free Unknown 05/24/2019 Administered Influenza, unspecified formulation Unknown 04/25/2018 A dministered Influenza, high dose seasonal Unknown 06/10/2017 Admini stered Influenza virus vaccine, quadrivalent (IIV4), split virus, 0.25 mL dosage Unknown 05/17/2020 Administered Social History Tobacco Use: Social History Observation Description Date Details (start date - stop date) Never Smoker NA - NA Sex Assigned At : Social History Observation Description Sex Assigned At Male Tobacco Control (Standard) Question Answer Notes Tobacco use: Nonsmoker Problems Problem Type SNOMED Code ICD Code Onset Dates Problem Status W/U Status Risk Notes Problem Mild recurrent major depression (80789984) Major depressive disorder, recurrent, mild (F33.0) Active confirmed Problem Generalized anxiety disorder (83784368) Generalized anxiety disorder (F41.1) Active confirmed Problem Insomnia (325968132) Other insomnia (G47.09) Active confirmed Vital Signs Heart Rate 67 /min 12/14/2024 Height-cm 165.10 cm 12/14/2024 Blood pressure diastolic 78 mm Hg 12/14/2024 Weight-kg 85.73 kg 12/14/2024 Height 65.00 in 12/14/2024 Blood pressure systolic 140 mm Hg 12/14/2024 Weight 189 lbs 12/14/2024 BMI 31.45 kg/m2 12/14/2024 Encounters Encounter Location Date Provider Diagnosis [facility] [address] [address] 02/20/2024 Samuel Kelsey Generalized anxiety disorder F41.1 and Recurrent major depressive episodes, mild F33.0 [facility] [address] [address] 03/05/2024 Samuel Kelsey Generalized anxiety disorder F41.1 and Recurrent major depressive episodes, mild F33.0 [facility] [address] [facility] [address] [place] [address] 03/19/2024 Samuel Kelsey Generalized anxiety disorder F41.1 and Recurrent major depressive episodes, mild F33.0 [facility] [address] [facility] [address] [place] [address] 03/31/2024 Samuel Kelsey Generalized anxiety disorder F41.1 and Recurrent major depressive episodes, mild F33.0 [facility] [address] [place] [address] 04/16/2024 Samuel Kelsey Generalized anxiety disorder F41.1 and Recurrent major depressive episodes, mild F33.0 [facility] [address] [place] [address] 05/05/2024 Samuel Kelsey Generalized anxiety disorder F41.1 and Recurrent major depressive episodes, mild F33.0 [facility] [address] [place] [address] 06/04/2024 Samuel Kelsey Generalized anxiety disorder F41.1 and Recurrent major depressive episodes, mild F33.0 [facility] [address] [place] [address] 07/07/2024 Samuel Kelsey [facility] [address] [place] [address] 08/04/2024 Samuel Kelsey Generalized anxiety disorder F41.1 and Recurrent major depressive episodes, mild F33.0 [place] [address] [place] [address] 08/05/2024 Micheal Almanza Generalized anxiety disorder F41.1 ; Major depressive disorder, recurrent, mild F33.0 and Other insomnia G47.09 [place] [address] [place] [address] 10/19/2024 Samuel Kelsey Generalized anxiety disorder F41.1 and Depression, major, recurrent, mild F33.0 [place] [address] [place] [address] 12/14/2024 Samuel Kesley Generalized anxiety disorder F41.1 and Depression, major, recurrent, mild F33.0 [facility] [address] [place] [address] 12/14/2024 Micheal Almanza Major depressive disorder, recurrent, mild F33.0 ; Other insomnia G47.09 ; Encounter for screening for cardiovascular disorders Z13.6 ; Dietary counseling and surveillance Z71.3 ; Generalized anxiety disorder F41.1 and Encounter for screening for depression Z13.31 [facility] [address] [place] [address] 01/12/2025 Samuel Kelsey Negative depression screening Z13.31 ; Generalized anxiety disorder F41.1 and Depression, major, recurrent, mild F33.0 [facility], [facility] [address] [place] [address] 11/17/2024 Letty Mahin Generalized anxiety disorder F41.1 [facility], [facility] [address] [place] [address] 02/09/2024 [facility] [address] [place] [address] 02/24/2024 [facility] [address] [place] [address] 04/06/2024 Micheal Almanza Generalized anxiety disorder F41.1 [facility], [facility] [address] [place] [address] 04/08/2024 [facility], [facility] [address] [place] [address] 04/17/2024 [facility] [address] [place] [address] 04/28/2024 [facility] [address] [place] [address] 04/28/2024 [facility] [address] [place] [address] 04/28/2024 Micheal Hortaoza Generalized anxiety disorder F41.1 [facility], [facility] [address] [place] [address] 06/26/2024 Micheal Almanza Generalized anxiety disorder F41.1 [facility], [facility] [address] [place] [address] 06/28/2024 [facility] [address] [place] [address] 07/26/2024 Micheal Almanza Generalized anxiety disorder F41.1 [facility], [facility] [address] [place] [address] 09/01/2024 [facility] [address] [place] [address] 11/16/2024 Micheal Almanza [facility] [address] [place] [address] 11/16/2024 Letty Stockton Generalized anxiety disorder F41.1 [place] [address] [place] [address] 12/30/2024 Michealselam Macea [place] [address] [facility] [address] [place] [address] 12/30/2024 Micheal Almanza Assessments Encounter Date Diagnosis (ICD Code) Assessment Notes Treatment Notes Treatment Clinical Notes Section Notes 02/20/2024 Generalized anxiety disorder (ICD-10 - F41.1) [...] 2004 due to having suffered a nervous breakdown. Further shared that he has been to out patient therapy but did not find it very helpful. Client currently sees Micheal Almanza for medication therapy; currently on Clonazapam and Trazadone. Client born in [facility] and grew up in [place], but moved around a lot, and spent a lot of time in [facility]. Parents were 59 years with father having in 1983 and mother in 2004. Noted father was a functioning alcoholic. Described childhood as dischelved and was the scapegoat in the family. Relationship with mother growing up characterized by her never telling him she loved him and never having bonded with him. Relationship with father was good in spite of his alcoholism, he cared. Client is the oldest of two; brother [...] 2004 due to having suffered a nervous breakdown. Further shared that he has been to out patient therapy but did not find it very helpful. Client currently sees Micheal Almanza for medication therapy; currently on Clonazapam and Trazadone. Client born in [facility] and grew up in [place], but moved around a lot, and spent a lot of time in [facility]. Parents were 59 years with father having in 1983 and mother in 2004. Noted father was a functioning alcoholic. Described childhood as dischelved and was the scapegoat in the family. Relationship with mother growing up characterized by her never telling him she loved him and never having bonded with him. Relationship with father was good in spite of his alcoholism, he cared. Client is the oldest of two; brother [...] 2004 due to having suffered a nervous breakdown. Further shared that he has been to out patient therapy but did not find it very helpful. Client currently sees Micheal Almanza for medication therapy; currently on Clonazapam and Trazadone.Maykel marquez born in [facility] and grew up in [place], but moved around a lot, and spent a lot of time in [facility]. Parents were 59 years with father having in 1983 and mother in 2004. Noted father was a functioning alcoholic. Described childhood as dischelved and was the scapegoat in the family. Relationship with mother growing up characterized by her never telling him she loved him and never having bonded with him. Relationship with father was good in spite of his alcoholism, he cared. Client is the oldest of two; brother [...] 2004 due to having suffered a nervous breakdown. Further shared that he has been to out patient therapy but did not find it very helpful. Client currently sees Micheal Almanza for medication therapy; currently on Clonazapam and Trazadone.Maykel marquez born in [facility] and grew up in [place], but moved around a lot, and spent a lot of time in [facility]. Parents were 59 years with father having in 1983 and mother in 2004. Noted father was a functioning alcoholic. Described childhood as dischelved and was the scapegoat in the family. Relationship with mother growing up characterized by her never telling him she loved him and never having bonded with him. Relationship with father was good in spite of his alcoholism, he cared. Client is the oldest of two; brother [...] 2004 due to having suffered a nervous breakdown. Further shared that he has been to out patient therapy but did not find it very helpful. Client currently sees Micheal Almanza for medication therapy; currently on Clonazapam and Trazadone.Maykel marquez born in [facility] and grew up in [place], but moved around a lot, and spent a lot of time in [facility]. Parents were 59 years with father having in 1983 and mother in 2004. Noted father was a functioning alcoholic. Described childhood as dischelved and was the scapegoat in the family. Relationship with mother growing up characterized by her never telling him she loved him and never having bonded with him. Relationship with father was good in spite of his alcoholism, he cared. Client is the oldest of two; brother [...] 2004 due to having suffered a nervous breakdown. Further shared that he has been to out patient therapy but did not find it very helpful. Client currently sees Micheal Almanza for medication therapy; currently on Clonazapam and Trazadone.Maykel marquez born in [facility] and grew up in [place] [place], but moved around a lot, and spent a lot of time in [facility]. Parents were 59 years with father having in 1983 and mother in 2004. Noted father was a functioning alcoholic. Described childhood as dischelved and was the scapegoat in the family. Relationship with mother growing up characterized by her never telling him she loved him and never having bonded with him. Relationship with father was good in spite of his alcoholism, he cared. Client is the oldest of two; brother [...] 2004 due to having suffered a nervous breakdown. Further shared that he has been to out patient therapy but did not find it very helpful. Client currently sees Micheal Almanza for medication therapy; currently on Clonazapam and Trazadone.Maykel marquez born in [facility] and grew up in [place] [place] [facility], but moved around a lot, and spent a lot of time in [facility]. Parents were 59 years with father having in 1983 and mother in 2004. Noted father was a functioning alcoholic. Described childhood as dischelved and was the scapegoat in the family. Relationship with mother growing up characterized by her never telling him she loved him and never having bonded with him. Relationship with father was good in spite of his alcoholism, he cared. Client is the oldest of two; brother [...] 2004 due to having suffered a nervous breakdown. Further shared that he has been to out patient therapy but did not find it very helpful. Client currently sees Micheal Almanza for medication therapy; currently on Clonazapam and Trazadone.Maykel marquez born in [facility] and grew up in [place], but moved around a lot, and spent a lot of time in [facility]. Parents were 59 years with father having in 1983 and mother in 2004. Noted father was a functioning alcoholic. Described childhood as dischelved and was the scapegoat in the family. Relationship with mother growing up characterized by her never telling him she loved him and never having bonded with him. Relationship with father was good in spite of his alcoholism, he cared. Client is the oldest of two; brother [...] 04/06/2024 Generalized anxiety disorder (ICD-10 - F41.1) 04/16/2024 Generalized anxiety disorder (ICD-10 - F41.1) [...] 2004 due to having suffered a nervous breakdown. Further shared that he has been to out patient therapy but did not find it very helpful. Client currently sees Micheal Almanza for medication therapy; currently on Clonazapam and Trazadone.Maykel marquez born in [facility] and grew up in [place], but moved around a lot, and spent a lot of time in [facility]. Parents were 59 years with father having in 1983 and mother in 2004. Noted father was a functioning alcoholic. Described childhood as dischelved and was the scapegoat in the family. Relationship with mother growing up characterized by her never telling him she loved him and never having bonded with him. Relationship with father was good in spite of his alcoholism, he cared. Client is the oldest of two; brother [...] 2004 due to having suffered a nervous breakdown. Further shared that he has been to out patient therapy but did not find it very helpful. Client currently sees Micheal Almanza for medication therapy; currently on Clonazapam and Trazadone.Maykel marquez born in [facility] and grew up in [place], but moved around a lot, and spent a lot of time in [facility]. Parents were 59 years with father having in 1983 and mother in 2004. Noted father was a functioning alcoholic. Described childhood as dischelved and was the scapegoat in the family. Relationship with mother growing up characterized by her never telling him she loved him and never having bonded with him. Relationship with father was good in spite of his alcoholism, he cared. Client is the oldest of two; brother [...] 2004 due to having suffered a nervous breakdown. Further shared that he has been to out patient therapy but did not find it very helpful. Client currently sees Micheal Almanza for medication therapy; currently on Clonazapam and Trazadone.Maykel marquez born in [facility] and grew up in [place], but moved around a lot, and spent a lot of time in [facility]. Parents were 59 years with father having in 1983 and mother in 2004. Noted father was a functioning alcoholic. Described childhood as dischelved and was the scapegoat in the family. Relationship with mother growing up characterized by her never telling him she loved him and never having bonded with him. Relationship with father was good in spite of his alcoholism, he cared. Client is the oldest of two; brother [...] 2004 due to having suffered a nervous breakdown. Further shared that he has been to out patient therapy but did not find it very helpful. Client currently sees Micheal Almanza for medication therapy; currently on Clonazapam and Trazadone.Maykel marquez born in [facility] and grew up in [place], but moved around a lot, and spent a lot of time in [facility]. Parents were 59 years with father having in 1983 and mother in 2004. Noted father was a functioning alcoholic. Described childhood as dischelved and was the scapegoat in the family. Relationship with mother growing up characterized by her never telling him she loved him and never having bonded with him. Relationship with father was good in spite of his alcoholism, he cared. Client is the oldest of two; brother [...] 2004 due to having suffered a nervous breakdown. Further shared that he has been to out patient therapy but did not find it very helpful. Client currently sees Micheal Almanza for medication therapy; currently on Clonazapam and Trazadone.Maykel marquez born in [facility] and grew up in [place], but moved around a lot, and spent a lot of time in [facility]. Parents were 59 years with father having in 1983 and mother in 2004. Noted father was a functioning alcoholic. Described childhood as dischelved and was the scapegoat in the family. Relationship with mother growing up characterized by her never telling him she loved him and never having bonded with him. Relationship with father was good in spite of his alcoholism, he cared. Client is the oldest of two; brother [...] 2004 due to having suffered a nervous breakdown. Further shared that he has been to out patient therapy but did not find it very helpful. Client currently sees Micheal Almanza for medication therapy; currently on Clonazapam and Trazadone.Maykel marquez born in [facility] and grew up in [place], but moved around a lot, and spent a lot of time in [facility]. Parents were 59 years with father having in 1983 and mother in 2004. Noted father was a functioning alcoholic. Described childhood as dischelved and was the scapegoat in the family. Relationship with mother growing up characterized by her never telling him she loved him and never having bonded with him. Relationship with father was good in spite of his alcoholism, he cared. Client is the oldest of two; brother [...] 07/26/2024 Generalized anxiety disorder (ICD-10 - F41.1) 08/04/2024 Generalized anxiety disorder (ICD-10 - F41.1) [...] 2004 due to having suffered a nervous breakdown. Further shared that he has been to out patient therapy but did not find it very helpful. Client currently sees Micheal Almanza for medication therapy; currently on Clonazapam and Trazadone.Maykel marquez born in [facility] and grew up in [place], but moved around a lot, and spent a lot of time in [facility]. Parents were 59 years with father having in 1983 and mother in 2004. Noted father was a functioning alcoholic. Described childhood as dischelved and was the scapegoat in the family. Relationship with mother growing up characterized by her never telling him she loved him and never having bonded with him. Relationship with father was good in spite of his alcoholism, he cared. Client is the oldest of two; brother [...] 2004 due to having suffered a nervous breakdown. Further shared that he has been to out patient therapy but did not find it very helpful. Client currently sees Micheal Almanza for medication therapy; currently on Clonazapam and Trazadone.Maykel marquez born in [facility] and grew up in [facility], but moved around a lot, and spent a lot of time in [facility]. Parents were 59 years with father having in 1983 and mother in 2004. Noted father was a functioning alcoholic. Described childhood as dischelved and was the scapegoat in the family. Relationship with mother growing up characterized by her never telling him she loved him and never having bonded with him. Relationship with father was good in spite of his alcoholism, he cared. Client is the oldest of two; brother [...] drugs and being very irresponsible and irrational. 08/05/2024 Major depressive disorder, recurrent, mild (ICD-10 [...] Patient reports a change in pharmacy from [facility] to [facility] in [place] starting August 25. Plan: - Update the [...] [facility] in [place] starting August 25. Plan: - Update the patient's pharmacy information in the medical record. - Ensure future prescriptions are sent to the correct pharmacy. 10/19/2024 Generalized anxiety disorder (ICD-10 - F41.1) 77 [...] 2004 due to having suffered a nervous breakdown. Further shared that he has been to out patient therapy but did not find it very helpful. Client currently sees Micheal Almanza for medication therapy; currently on Clonazapam and Trazadone.Maykel marquez born in [facility] and grew up in [facility], but moved around a lot, and [place] a [place] time in [place] [facility]. Parents were 59 years with father having in 1983 and mother in 2004. Noted father was a functioning alcoholic. Described childhood as dischelved and was the scapegoat in the family. Relationship with mother growing up characterized by her never telling him she loved him and never having bonded with him. Relationship with father was good in spite of his alcoholism, he cared. Client is the oldest of two; brother [...] drugs and being very irresponsible and irrational. 10/19/2024 Depression, major, recurrent, mild (ICD-10 - F33.0) 77 year old [...] 2004 due to having suffered a nervous breakdown. Further shared that he has been to out patient therapy but did not find it very helpful. Client currently sees Micheal Almanza for medication therapy; currently on Clonazapam and Trazadone.Maykel marquez born in [facility] and grew up in [place], but moved around a lot, and spent a lot of time in [facility]. Parents were 59 years with father having in 1983 and mother in 2004. Noted father was a functioning alcoholic. Described childhood as dischelved and was the scapegoat in the family. Relationship with mother growing up characterized by her never telling him she loved him and never having bonded with him. Relationship with father was good in spite of his alcoholism, he cared. Client is the oldest of two; brother [...] drugs and being very irresponsible and irrational. 11/16/2024 Generalized anxiety disorder (ICD-10 - F41.1) CancelRx Response got Denied on 2024-11-17 16:12:22 for 'clonazePAM 0.5 MG Tablet'Jennifer castano Notes: Unable to Cancel Rx. Please contact Pharmacy 11/17/2024 Generalized anxiety disorder (ICD-10 - F41.1) 12/14/2024 Generalized anxiety disorder (ICD-10 - F41.1) 77 [...] 2004 due to having suffered a nervous breakdown. Further shared that he has been to out patient therapy but did not find it very helpful. Client currently sees Micheal Almanza for medication therapy; currently on Clonazapam and Trazadone.Maykel marquez born in [facility] and grew up in [facility], but moved around a lot, and spent a lot of time in [facility]. Parents were 59 years with father having in 1983 and mother in 2004. Noted father was a functioning alcoholic. Described childhood as dischelved and was the scapegoat in the family. Relationship with mother growing up characterized by her never telling him she loved him and never having bonded with him. Relationship with father was good in spite of his alcoholism, he cared. Client is the oldest of two; brother [...] drugs and being very irresponsible and irrational. 12/14/2024 Depression, major, recurrent, mild (ICD-10 - F33.0) 77 year old [...] 2004 due to having suffered a nervous breakdown. Further shared that he has been to out patient therapy but did not find it very helpful. Client currently sees Micheal Almanza for medication therapy; currently on Clonazapam and Trazadone.Maykel marquez born in [facility] and grew up in [facility], but moved around a lot, and spent a lot of time in [facility]. Parents were 59 years with father having in 1983 and mother in 2004. Noted father was a functioning alcoholic. Described childhood as dischelved and was the scapegoat in the family. Relationship with mother growing up characterized by her never telling him she loved him and never having bonded with him. Relationship with father was good in spite of his alcoholism, he cared. Client is the oldest of two; brother [...] drugs and being very irresponsible and irrational. 12/14/2024 Major depressive disorder, recurrent, mild (ICD-10 - F33.0) on bupropion xl by pcp 01/12/2025 Generalized anxiety disorder (ICD-10 - F41.1) 77 [...] 2004 due to having suffered a nervous breakdown. Further shared that he has been to out patient therapy but did not find it very helpful. Client currently sees Micheal Almanza for medication therapy; currently on Clonazapam and Trazadone.Maykel marquez born in [facility] and grew up in [facility], but moved around a lot, and spent a lot of time in [facility]. Parents were 59 years with father having in 1983 and mother in 2004. Noted father was a functioning alcoholic. Described childhood as dischelved and was the scapegoat in the family. Relationship with mother growing up characterized by her never telling him she loved him and never having bonded with him. Relationship with father was good in spite of his alcoholism, he cared. Client is the oldest of two; brother [...] drugs and being very irresponsible and irrational. 01/12/2025 Negative depression screening (ICD-10 - Z13.31) 77 year old male who presents with [...] 2004 due to having suffered a nervous breakdown. Further shared that he has been to out patient therapy but did not find it very helpful. Client currently sees Micheal Almanza for medication therapy; currently on Clonazapam and Trazadone.Maykel marquez born in [facility] and grew up in [place], but moved around a lot, and spent a lot of time in [facility]. Parents were 59 years with father having in 1983 and mother in 2004. Noted father was a functioning alcoholic. Described childhood as dischelved and was the scapegoat in the family. Relationship with mother growing up characterized by her never telling him she loved him and never having bonded with him. Relationship with father was good in spite of his alcoholism, he cared. Client is the oldest of two; brother [...] drugs and being very irresponsible and irrational. 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 Further shared that he has been to out patient therapy but did not find it very helpful. Client currently sees Micheal Almanza for medication therapy; currently on Clonazapam and Trazadone.Maykel marquez born in [facility] and grew up in [place], but moved around a lot, and spent a lot of time in [facility]. Parents were 59 years with father having in 1983 and mother in 2004. Noted father was a functioning alcoholic. Described childhood as dischelved and was the scapegoat in the family. Relationship with mother growing up characterized by her never telling him she loved him and never having bonded with him. Relationship with father was good in spite of his alcoholism, he cared. Client is the oldest of two; brother [...] drugs and being very irresponsible and irrational. 12/14/2024 Other insomnia (ICD-10 - G47.09) 08/05/2024 Other insomnia (ICD-10 - G47.09) 1. [...] Patient reports a change in pharmacy from [facility] (formerly [facility]) to [facility] in [place] starting August 25. Plan: - Update the patient's pharmacy information in the medical record. - Ensure future prescriptions are sent to the correct pharmacy. 12/14/2024 Encounter for screening for cardiovascular disorders (ICD-10 - Z13.6) 12/14/2024 Dietary counseling and surveillance (ICD-10 - Z71.3) 12/14/2024 Generalized anxiety disorder (ICD-10 - F41.1) 12/14/2024 Encounter for screening for depression (ICD-10 - Z13.31) 02/20/2024 Other Client participated in individual psychotherapy(CBT ) related to his history of anxiety and [...] 2004 due to having suffered a nervous breakdown. Further shared that he has been to out patient therapy but did not find it very helpful. Client currently sees Micheal Almanza for medication therapy; currently on Clonazapam and Trazadone. Client born in [facility] and grew up in [place], but moved around a lot, and spent a lot of time in [facility]. Parents were 59 years with father having in 1983 and mother in 2004. Noted father was a functioning alcoholic. Described childhood as dischelved and was the scapegoat in the family. Relationship with mother growing up characterized by her never telling him she loved him and never having bonded with him. Relationship with father was good in spite of his alcoholism, he cared. Client is the oldest of two; brother [...] irrational. 03/05/2024 Other Client participated in individual psychotherapy(CBT ) related to history of anxiety and depression. Based on today's session continued psychotherapy is recommended with no changes to treatment plan. Client presented to session well groomed and fully oriented with no risk of harm to self or others. Client verbal and engaged through out session. Reported upon presentation that he has not been quite well as I am normally am. Noted that anxiety has been elevated inspite [...] 2004 due to having suffered a nervous breakdown. Further shared that he has been to out patient therapy but did not find it very helpful. Client currently sees Micheal Almanza for medication therapy; currently on Clonazapam and Trazadone.Maykel marquez born in [facility] and grew up in [facility], but moved around a lot, and spent a lot of time in [facility]. Parents were 59 years with father having in 1983 and mother in 2004. Noted father was a functioning alcoholic. Described childhood as dischelved and was the scapegoat in the family. Relationship with mother growing up characterized by her never telling him she loved him and never having bonded with him. Relationship with father was good in spite of his alcoholism, he cared. Client is the oldest of two; brother [...] irrational. 03/19/2024 Other Client partcipated in individual psychotherpay(CBT ) related to hx of anxiety and depression. [...] 2004 due to having suffered a nervous breakdown. Further shared that he has been to out patient therapy but did not find it very helpful. Client currently sees Micheal Almanza for medication therapy; currently on Clonazapam and Trazadone.Maykel marquez born in [facility] and grew up in [place], but moved around a lot, and spent a lot of time in [facility]. Parents were 59 years with father having in 1983 and mother in 2004. Noted father was a functioning alcoholic. Described childhood as dischelved and was the scapegoat in the family. Relationship with mother growing up characterized by her never telling him she loved him and never having bonded with him. Relationship with father was good in spite of his alcoholism, he cared. Client is the oldest of two; brother [...] irrational. 03/31/2024 Other Client participated in individual psychotherapy(CBT ) related to hx of anxiety and depression. [...] 2004 due to having suffered a nervous breakdown. Further shared that he has been to out patient therapy but did not find it very helpful. Client currently sees Micheal Macea for medication therapy; currently on Clonazapam and Trazadone.Maykel marquez born in [facility] and grew up in [facility], but moved around a lot, and spent a lot of time in [facility]. Parents were 59 years with father having in 1983 and mother in 2004. Noted father was a functioning alcoholic. Described childhood as dischelved and was the scapegoat in the family. Relationship with mother growing up characterized by her never telling him she loved him and never having bonded with him. Relationship with father was good in spite of his alcoholism, he cared. Client is the oldest of two; brother [...] 2004 due to having suffered a nervous breakdown. Further shared that he has been to out patient therapy but did not find it very helpful. Client currently sees Micheal Almanza for medication therapy; currently on Clonazapam and Trazadone.Maykel marquez born in [facility] and grew up in [place], but moved around a lot, and spent a lot of time in [facility]. Parents were 59 years with father having in 1983 and mother in 2004. Noted father was a functioning alcoholic. Described childhood as dischelved and was the scapegoat in the family. Relationship with mother growing up characterized by her never telling him she loved him and never having bonded with him. Relationship with father was good in spite of his alcoholism, he cared. Client is the oldest of two; brother [...] irrational. 05/05/2024 Other Client particiapted in individual psychotherapy(CBT /Supportive) related to his hx of anxiety and [...] 2004 due to having suffered a nervous breakdown. Further shared that he has been to out patient therapy but did not find it very helpful. Client currently sees Micheal Almanza for medication therapy; currently on Clonazapam and Trazadone.Maykel marquez born in [facility] and grew up in [facility], but moved around a lot, and spent a lot of time in [facility]. Parents were 59 years with father having in 1983 and mother in 2004. Noted father was a functioning alcoholic. Described childhood as dischelved and was the scapegoat in the family. Relationship with mother growing up characterized by her never telling him she loved him and never having bonded with him. Relationship with father was good in spite of his alcoholism, he cared. Client is the oldest of two; brother [...] irrational. 06/04/2024 Other Client participated in indiividual psychotherapy(CBT /Supportive related to his hx of anxiety and [...] 2004 due to having suffered a nervous breakdown. Further shared that he has been to out patient therapy but did not find it very helpful. Client currently sees Micheal Almanza for medication therapy; currently on Clonazapam and Trazadone.Maykel marquez born in [facility] and grew up in [facility], but moved around a lot, and spent a lot of time in [facility]. Parents were 59 years with father having in 1983 and mother in 2004. Noted father was a functioning alcoholic. Described childhood as dischelved and was the scapegoat in the family. Relationship with mother growing up characterized by her never telling him she loved him and never having bonded with him. Relationship with father was good in spite of his alcoholism, he cared. Client is the oldest of two; brother [...] 2004 due to having suffered a nervous breakdown. Further shared that he has been to out patient therapy but did not find it very helpful. Client currently sees Micheal Almanza for medication therapy; currently on Clonazapam and Trazadone.Maykel marquez born in [facility] and grew up in [facility], but moved around a lot, and spent a lot of time in [facility]. Parents were 59 years with father having in 1983 and mother in 2004. Noted father was a functioning alcoholic. Described childhood as dischelved and was the scapegoat in the family. Relationship with mother growing up characterized by her never telling him she loved him and never having bonded with him. Relationship with father was good in spite of his alcoholism, he cared. Client is the oldest of two; brother [...] irrational. 08/04/2024 Other Client participated in individual psychotherapy(CBT /Supportive) related to his hx of anxiety and [...] 2004 due to having suffered a nervous breakdown. Further shared that he has been to out patient therapy but did not find it very helpful. Client currently sees Micheal Almanza for medication therapy; currently on Clonazapam and Trazadone.Maykel marquez born in [facility] and grew up in [place], but moved around a lot, and spent a lot of time in [facility]. Parents were 59 years with father having in 1983 and mother in 2004. Noted father was a functioning alcoholic. Described childhood as dischelved and was the scapegoat in the family. Relationship with mother growing up characterized by her never telling him she loved him and never having bonded with him. Relationship with father was good in spite of his alcoholism, he cared. Client is the oldest of two; brother [...] drugs and being very irresponsible and irrational. 10/19/2024 Other Clinical Notes : Client participated in individual psychotherapy(CBT /Supportive) related to his hx of anxiety and depression. Based on today's session continued psychotherapy is recommended with no changes to treatment plan. Client presented to session well groomed and fully oriented with no risk of harm to self or others. Client verbal and engaged through out session. Reported upon presentation that it has been a rough two to three months since last seen on 08.04.2024. Stated that anxiety has been increased due to some health issues, insurance concerns and 's on going health problems. Added that eversince he went deer hunting with son back in June he has been exhausted with very little energy to do much of anything. Admitted that he has been struggling accepting his physical limitations the older he gets. Added that the uncertainty in changes in his health insurance has been his biggest trigger for anxiety. Client reiterated from previous sessions that he is very uncomfortable not knowing and has a high need for certainty. Session accordingly focused on helping client examine his relationship with acceptance control and uncertainty. Long held beliefs about all three addressed and challenged. Client receptive to session feedback. Next session [...] 2004 due to having suffered a nervous breakdown. Further shared that he has been to out patient therapy but did not find it very helpful. Client currently sees Micheal Almanza for medication therapy; currently on Clonazapam and Trazadone.Maykel marquez born in [facility] and grew up in [place], but moved around a lot, and spent a lot of time in [facility]. Parents were 59 years with father having in 1983 and mother in 2004. Noted father was a functioning alcoholic. Described childhood as dischelved and was the scapegoat in the family. Relationship with mother growing up characterized by her never telling him she loved him and never having bonded with him. Relationship with father was good in spite of his alcoholism, he cared. Client is the oldest of two; brother [...] drugs and being very irresponsible and irrational. 12/14/2024 Other Client participated in individual psychotherapy(CBT /Supportive) related to his hx of anxiety and depression. Based on today's session continued psychotherapy is recommended with no changes to treatment plan. Client presented to session well groomed and fully oriented with no risk of harm to self or others. Client verbal and engaged through out session. Reported upon presentation that he has had a rough time the past month or so. Explained that he took an anti-biotic for his Rosacea and suffered adverse side affects from anti-biotic and stopped it five days ago. Noted that he experienced severe headaches and ringing in his right ear. Anxiety increased as a result of side effects as well his high need for certainty related to health insurance. Admitted that he continues to struggle with acceptance and control (desire to control what is beyond his control). Remainder of session client vented about current politcial climate and worry that things are going to get worse before they get better. Client receptive to session feedback. Next session [...] 2004 due to having suffered a nervous breakdown. Further shared that he has been to out patient therapy but did not find it very helpful. Client currently sees Micheal Almanza for medication therapy; currently on Clonazapam and Trazadone.Maykel marquez born in [facility] and grew up in [place], but moved around a lot, and spent a lot of time in [facility]. Parents were 59 years with father having in 1983 and mother in 2004. Noted father was a functioning alcoholic. Described childhood as dischelved and was the scapegoat in the family. Relationship with mother growing up characterized by her never telling him she loved him and never having bonded with him. Relationship with father was good in spite of his alcoholism, he cared. Client is the oldest of two; brother [...] drugs and being very irresponsible and irrational. 12/14/2024 Cain Barillas, a 79-year-old male with a history of anxiety, presents with recent anxiety episodes, tinnitus exacerbation, and headache following discontinuation of doxycycline for rosacea. Generalized Anxiety Disorder Assessment: Patient reports recent anxiety episodes over the past few weeks. He is currently managed on clonazepam with a regimen of 0.5 mg in the morning, 0.5 mg in the afternoon, and 1 mg in the evening. This regimen appears to be effective in controlling his anxiety symptoms. 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 He expresses a desire to continue the medication given its efficacy and his advanced age (turning 80 next month). Regular therapy sessions with Samuel have been beneficial in managing his anxiety. Plan: - Continue clonazepam 0.5 mg PO BID (morning and afternoon) and 1 mg PO qHS - Refill clonazepam prescription - Continue therapy sessions with Samuel - Follow up in 3 months Tinnitus Assessment: Patient reports worsening tinnitus, which he attributes to the recent discontinuation of doxycycline prescribed for rosacea. The tinnitus is described as resounding and appears to be progressively worsening over time. Patient is considering consultation with an human capital analyst for potential noise-masking interventions. Plan: - Encourage follow-up with primary care physician on January 26 to discuss tinnitus progression - Patient to consider human capital analyst consultation for tinnitus management options Headache Assessment: Patient reports experiencing a severe headache following discontinuation of doxycycline. The headache is described as persistent and may be related to sinus pressure or increased tinnitus. Patient is reluctant to take Tylenol and prefers to manage symptoms with increased water intake. 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 He uses a CPAP machine following a sleep study in June, with recent improvement in efficacy. Patient reports getting up twice nightly for bathroom visits but is generally able to fall back asleep. He denies daytime napping. Plan: - Continue current sleep hygiene practices - Maintain use of CPAP machine as prescribed - Monitor sleep patterns and report significant changes at next follow-up the note is transcribed using speech recognition software. It is a reflection of a visit with the patient. It might have some inaccuracy, including medication names and transcribing errors, though efforts have been made to correct them. 01/12/2025 Other Client participated in individual psychotherapy(CBT /Supportive) related to his hx of anxiety and depression. Based on today's session continued psychotherapy is recommended with no changes to treatment plan. Client presented to session well groomed and fully oriented with no risk of harm to self or others. Client verbal and engaged through out session. Reported upon presentation that he has been okay since last seen on 12.14.2024 but awoke this morning feeling dissy and conjested. Further stated that has been battling an upper respiratory illness as well. Added that he has been preparing to go deer hunting with son once again in spite of his previous hunting experience with him. He and going to [place] for a few weeks the first of February. Believes anxiety overall has been less but does continue to be trigered by some things especially bills from insurance and medical providers. Session accordingl helped client explore origin of anxiety and medical bills. Client receptive to session feedback. Next session [...] 2004 due to having suffered a nervous breakdown. Further shared that he has been to out patient therapy but did not find it very helpful. Client currently sees Micheal Almanza for medication therapy; currently on Clonazapam and Trazadone.Maykel marquez born in [facility] and grew up in [facility], but moved around a lot, and spent a lot of time in [facility]. Parents were 59 years with father having in 1983 and mother in 2004. Noted father was a functioning alcoholic. Described childhood as dischelved and was the scapegoat in the family. Relationship with mother growing up characterized by her never telling him she loved him and never having bonded with him. Relationship with father was good in spite of his alcoholism, he cared. Client is the oldest of two; brother [...] irrational. Plan Of Treatment Next Appt Details Provider Name:Samuel balderas, 02/11/2025 11:00:00 AM, [address], [facility] [address], [place], [address], Provider Name:Micheal stark, 03/15/2025 10:00:00 AM, [address], [address], [place], [address], Insurance Providers Payer Name Payer Address Payer Phone Subscriber Number Group Number Insured Name Patient Relationship to Insured Coverage Start Date Coverage End Date Medicare-I l Medicare [address] [place] [phone] [id number] NILDA BARILLAS Self - patient is the insured [employer] [address] [place] [address] [id number] NILDA BARILLAS Self - patient is the insured Medical (General) History Medical History History ICD Code Problems: Generalized anxiety disorder Mild recurrent major depression Persistent insomnia , Imported from Highlights: patient has been under the care of several physicians at [facility]. On 07/06/2024, the patient was seen by Dr. Alejandrina Dowd for Sensorineural hearing loss (SNHL) and Tinnitus in both ears. The same conditions were confirmed by Dr. Jarad Mares on the same day. The patient underwent a procedure for these conditions. On 12/07/2024, the patient had an office visit with Dr. Cr Doyle for a follow-up exam and prostate cancer screening. The patient also had a status post (S/P) insertion of a penile implant. The prostate cancer screening was also conducted in a lab on the same day. The patient had several other office visits and a surgical outpatient visit with Dr. Jayro Diaz, but the records do not specify the reasons for these visits. Surgical History Surgery Date(Month/Year) Cataract surgery () Tonsilectomy/adenoids Other Sinus surgery
--- OUTSIDE RECORDS SUMMARY | 2025-01-25 08:01 | XMS_ITS ---
Author Organization [facility], Address [address] [place] [address] Care Team Providers Care Roll Icer Name Role Phone Sonny Yeung Primary Care Provider Jayro Solomon Unavailable [phone] ALLERGIES No Known Allergies REASON FOR REFERRAL [...] PC [address] [place] [address] 07/21/2024 Jayro Diaz Other low back pain [...] Provider Referred Provider Not es 07/21/2024 Jayro iDaz , DIAGNOSES: s /p L4-5 lami and disc on the right, SI enthesopathy, back pain/strain, DDD, radiculopathy 3 times per week for 3 weeks eval and treat, exercise, modalities per therapist's discretion; HEP sacroiliac mobilization/stabilization
--- OUTSIDE RECORDS SUMMARY | 2025-01-25 08:01 | XMS_ITS ---
Author Organization [facility], Address [address] [place] [address] Care Team Providers Care Information Security Risk Analyst Name Role Phone Sonny Yeung Primary Care Provider Jayro Solomon Unavailable [phone] Encounters Encounter Location Date Provider Diagnosis [facility] [address] [place] [address] 07/09/2024 Jayro Diaz PLAN OF TREATMENT No Information
--- OUTSIDE RECORDS SUMMARY | 2025-01-25 08:01 | XMS_ITS | Clinical Summary ---
Author Organization [facility] Address [address] [place] [address] Care Team Providers Care Nurse Receptionist Name Role Phone Cr Doyle MD Unavailable [phone] Sanju Jain DO Primary Care Provider [phone] Allergies Active Allergy Reactions Criticality Noted Date [...] 07/06/2024 Assessment & Plan (07/06/2024 10:52 AM INSOLE FILLER): I talked with the patient about tinnitus. Typically it is due to hearing loss but there are other potential reasons for it. It can occur due to cervical strain or TMJ disorder. Also potentially due to tumors which are usually benign. Unfortunately there is no widely accepted or successful treatment for it. There are a lot of alho-gmc-cfjyfsg remedies which generally do not help and [...] 09/05/2023 Assessment & Plan (07/06/2024 10:51 AM INSOLE FILLER): He does have pretty significant bilateral sensorineural hearing loss. It is pretty equivalent when comparing right to left. I think he should continue with amplification. 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 07/25/2022 Benign prostatic hyperplasia with urinary obstru ction 07/15/2022 Overview (07/15/2022): Added automatically from request for surgery [id number] Dyslipidemia 02/13/2018 Chest pain 02/13/2018 Essential hypertension 02/13/2018 NAKUL on CPAP 02/13/2018 Encounters Date Type Department Care Team Description 12/07/2024 2:30 PM CDT Lab [address] [address] Prostate cancer screening 12/07/2024 1:40 PM CDT Office Visit [facility] Urology [address] [place] [address] [address] Medical Office Building [address] [place] [address] Cr Doyle MD Follow-up exam (Primary Dx); Prostate cancer screening; S/P insertion of penile implant from Last 3 Months Immunizations Immunization Administration Dates Next Due Moderna [...] on file Legal Sex Male 2:33 AM INSOLE FILLER Gender Identity Not on file Sexual Orientation [...] CDT Respiratory Rate 20 07/06/2024 10:29 AM INSOLE FILLER Oxygen Saturation 98% 03/07/2023 12:09 PM CDT Inhaled Oxygen Concentration - - Weight 81.6 kg (180 lb) 07/06/2024 10:29 AM INSOLE FILLER Height 167.6 cm (5' 6) 07/06/2024 10:29 AM INSOLE FILLER Body Mass Index 29.05 07/06/2024 10:29 AM INSOLE FILLER Plan of Treatment Health Maintenance Due Date Last Done Comments Depression Screening 1945 Hepatitis C Screening 1945 DTaP/Tdap/Td Vaccine (1 - Tdap) 1958 Hepatitis B Screening 1965 Well Visit 65+ 01/11/2012 Fall Risk Assessment 03/06/2024 03/06/2023, 02/14/20 18 Covid-19 Vaccine (2023-2 5 season) 2024 11/07/2020, 10/10/2020 Influenza Vaccine (Season Ended) 2025 05/17/2020, 05/24/2019, 05/24/2019, Additional history exists Pneumococcal vaccine 65+ Completed 018, 06/10/2017, 01/11/2012, Additional history exists Zoster Vaccine Completed 06/23/2020, 04/06/2020 Medical Devices Implanted Type Area Materials Intern Device Identifier Shelf Expiration Date Model / Serial / Lot [employer] Srinivasan Ams Spectra 3cm Concealable Rear Tip Chemical Cell Changer Snapcone Prosthesis [id number] - [id number] Implanted:Qty: 1 on 03/06/2023 by Cr Doyle MD at [facility] N/A: Penis [employer] Srinivasan 10/22/2027 [id number] / / [id number] [employer] Srinivasan Ams 700 Lgx Ms Pump 18cm 3 Piece Inflatable Preconnect Infrapubic [id number] - [id number] Implanted:Qty: 1 on 03/06/2023 by Cr Doyle MD at [facility] N/A: Penis [employer] Srinivasan 11/17/2024 [id number] / / [id number] [employer] Srinivasan Ams 700 Ms Pump Preconnect Inflatable Spherical [place] [id number] - [id number] Implanted:Qty: 1 on 03/06/2023 by Cr Doyle MD at [facility] N/A: Penis [employer] Srinivasan 03/04/2024 [id number] / / [id number] Procedures Procedure Name Priority Date/Time Associated Diagnosis [...] LAB BLOOD ORDERABLES Fi nal Result ERAN [address] [place] [address] * Measure post void residual (12/07/2024 1:50 PM CDT) Narrative Renae Garcia LPN - 12/07/2024 1:50 PM CDT Measurement of post-voiding residual urine and/or bladder capacity by ultrasound, non-imaging. PVR = 57 mL us Cr Doyle MD NURSING ASSESSMENTS Fin al Result from Last 3 Months Insurance [employer] MEDICARE SUPPLEMENT INSURANCE MEDICARE MEDICARE [employer] MEDICARE SUPPLEMENT MEDICARE [facility] MEDICARE SUPPLEMENT Advance Directives For more information, please contact: [phone] * Full Code (Latest Code Status on File) Date Activated Date Inactivated Comments 03/06/2023 1:00 PM 03/07/2023 4:35 PM * Full Code Date Activated Date Inactivated Comments 07/25/2022 3:11 PM 07/26/2022 7:31 PM Care Teams Nurse Receptionist Relationship Specialty Start Date End Date Sanju Jain DO [address] [facility] [address] [facility] [address] [place] [address] PCP - General Internal Medicine 06/21/24 [place] [address] [facility] [address] [place] [address] Consulting Physician Urology 03/07/23
--- OUTSIDE RECORDS SUMMARY | 2025-01-25 08:01 | XMS_ITS | Patient Health Record ---
Author Organization [facility] , Address [address] [address] Care Team Providers Care Mortgage Loan Processing Clerk Name Role Phone Sonny Yeung Primary Care Provider Jayro Solomon Unavailable [phone] Vanesa Watts Unavailable [phone] ALLERGIES No Known Allergies REASON FOR REFERRAL Reason DIAGNOSES: s/p LDL a nd disc L4-5 3 times per week for 3 weeks eval and treat, exercise, modalities per therapist's discretion; [facility] Referral Organization [facility] Referring Provider First Name Jayro Referring Provider Last Name Emily Referring Provider Speciality Orthopedic Surgery Referred Provider Specialty Physical The rapy Referral Priority Routine Reason DIAGNOSES: L4-5 lami and disc 3 times per week for 3 weeks eval and treat, exercise, modalities per therapist's discretion; [facility] Referral Organization [facility] Referring Provider First Name Jayro Referring Provider Last Name Emily Referring Provider Speciality Orthopedic Surgery Referred Provider Specialty Physical The rapy Referral Priority Routine Reason DIAGNOSES: s/p L4-5 lami and disc on the right, SI enthesopathy, back pain/strain, DDD, radiculopathy 3 times per week for 3 weeks eval and treat, exercise, modalities per therapist's discretion; [facility] sacroiliac mobilization/stabilization Referral Organization [facility] Referring Provider First Name Jayro Referring Provider [...] Displacement of lumbar intervertebral disc without myelopathy (52308586) 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 Lumbosacral spondylosis without myelopathy (52079015) Problem DDD (degenerative disc disease), lumbar (M51.36) Active confirmed Degenerative disc disease (12801657) VITAL SIGNS Temperature 97.0 degrees Fahrenheit 04/07/2024 Height 66 in 08/19/2024 Weight 177 lbs 08/19/2024 BMI 28.57 kg/m2 08/19/2024 Encounters Encounter Location Date Provider Diagnosis [facility] [address] [facility] [address] [place] [address] 02/18/2024 Jayro Emily Aftercare following surgery of the musculoskeletal system, [facility] Z47.89 [facility] [address] [address] 03/17/2024 Jayro Emily Aftercare following surgery of the musculoskeletal system, [facility] Z47.89 [facility], [address] [facility] [address] [place] [address] 03/22/2024 Jayro Emily Aftercare following surgery of the musculoskeletal system, [facility] Z47.89 [facility], [address] [facility] [address] [place] [address] 04/07/2024 Jayro Emily Aftercare following surgery of the musculoskeletal system, [facility] Z47.89 [facility], [address] [facility] [address] [place] [address] 05/19/2024 Jayro Joshibot Other low back pain M54.59 [facility] [address] [address] 07/09/2024 Jayro Diaz [facility] [address] [address] 07/21/2024 Jayro Diaz Other low back pain M54.59 ; Back strain S39.012A ; Myalgia, other site M79.18 ; Arthrodesis status Z98.1 ; Disc Degeneration, Lumbar Region with Leg Pain M51.361 and 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 [facility] [address] [address] 08/19/2024 Jayro Diaz Other low back pain M54.59 [facility] - Outpatient [address] [place] [address] 02/03/2024 Jayro Diaz Lumbar stenosis with neurogenic claudication M48.062 ; HNP (herniated nucleus pulposus), lumbar M51.26 and Lumbar radiculopathy M54.16 [facility] - Outpatient [address] [place] [address] 02/03/2024 Vanesa Watts Lumbar stenosis with neurogenic claudication M48.062 ; HNP (herniated nucleus pulposus), lumbar M51.26 and Lumbar radiculopathy M54.16 [facility] [address] [address] 02/02/2024 Jayro Diaz [facility] [address] [address] 02/10/2024 Jayro Diaz [facility] [address] [address] 06/21/2024 Jayro Diaz ASSESSMENTS Encounter Date Diagnosis Assessment Notes Treatment Notes Treatment Clinical Notes 02/18/2024 Aftercare following surgery of the musculoskeletal [...] stenosis with neurogenic claudication (ICD-10 - M48.062) 07/21/2024 Back strain (ICD-10 - S39.012A) 02/03/2024 HNP (herniated nucle us pulposus), lumbar (ICD-10 - M51.26) 02/03/2024 HNP (herniated nucle us pulposus), lumbar (ICD-10 - M51.26) 07/21/2024 Myalgia, other site (ICD-10 - M79.18) 02/03/2024 Lumbar radiculopathy (ICD-10 - M54.16) 02/03/2024 Lumbar radiculopathy (ICD-10 - M54.16) 07/21/2024 Arthrodesis status (ICD-10 - Z98.1) 07/21/2024 [...] Coverage End Date Medicare [place] [address] [address] [place] [address] [id number] Louie Snowden Self - patient is the insured [employer] Supplemental Benefits [address] [phone] [id number] Louie Snowden Self - patient is the [...]
[2025-01-25 08:35] LABS: Basophils Percent Auto 0.4 % (0.2-1.2); Eosinophils Absolute Auto 0.2 K/mm3 (0-0.3); Eosinophils Percent Auto 2.7 % (0-4.4); Hematocrit 43.9 % (42.0-52.0); Hemoglobin 14.1 g/dL (14.0-18.0); Immature Granulocyte Absolute 0.04 K/mm3 (0.00-0.031); Immature Granulocyte Percent A 0.7 % (0-0.5); Lymphocytes Absolute Auto 1.58 K/mm3 (0.9-3.2); Lymphocytes Percent Auto 28.3 % (18.3-44.2); Mean Corpuscular HGB Conc 32.1 g/dl (32-36); Mean Corpuscular Hemoglobin 30.5 pg (26-34); Mean Platelet Volume 9.2 fl (7.4-10.4); Monocytes Absolute Auto 0.7 K/mm3 (0.1-0.6); Monocytes Percent Auto 12.2 % (2.6-8.5); Neutrophils Absolute Auto 3.1 K/mm3 (1.3-6.7); Neutrophils Percent Auto 55.7 % (45.5-73.1); Platelet Count Result 208 k/mm3 (150-375); Red Blood Count 4.62 M/mm3 (4.6-6.20); Red Cell Distribution Width 13.4 % (11.5-14.5); White Blood Count 5.6 K/mm3 (4.5-10.0)
[2025-01-25 10:33] LABS: Vitamin D 25 Hydroxy 29.6 ng/mL
[2025-01-25 11:01] LABS: Alanine Aminotransferase 25 U/L (6-50); Albumin Level 4.5 g/dL (3.5-5.1); Alkaline Phosphatase 45 U/L (38-126); Anion Gap 10 mmol/L (4-12); Aspartate Amino Transferase 35 U/L (17-59); Bilirubin,Total 0.5 mg/dL (0.2-1.3); Blood Urea Nitrogen 28 mg/dL (9-20); Calcium 9.7 mg/dL (8.4-10.2); Carbon Dioxide 24 mmol/L (22-30); Chloride 104 mmol/L (98-107); Cholesterol 148 mg/dL (0-200); Estimated Glomerular Filt Rate 45; Glucose 108 mg/dL (65-110); HDL Direct 35 mg/dL; Potassium 4.4 mmol/L (3.4-5.0); Sodium 138 mmol/L (137-145); Total Protein 7.1 g/dL (6.3-8.2); Triglycerides 164 mg/dL (<150)
[2025-01-25 11:12] LABS: LDL Cholesterol Direct 77 mg/dL
== END 2025-01-25 07:56 | disposition home or self-care (01) ==
PROVIDERS: PCP Internal Medicine; Visit Provider Internal Medicine
DX: E78.5 Hyperlipidemia, unspecified (principal); E55.9 Vitamin D deficiency, unspecified; R79.89 Other specified abnormal findings of blood chemistry; R53.83 Other fatigue; I10 Essential (primary) hypertension
CPT/HCPCS: 36415; 80053; 80061; 82306; 82728; 85025

== ENCOUNTER 2025-07-01 11:41 | Outpatient (CLI) | payer MEDICARE, SELFPAY ==
--- OUTSIDE RECORDS SUMMARY | 2025-07-01 12:15 | XMS_ITS | Clinical Summary ---
Author Organization [facility] Address [address] [place] [address] Care Team Providers Care Sail Cutter Name Role Phone Cr Doyle MD Unavailable [phone] Sanju Jain DO Primary Care Provider [phone] Allergies Active Allergy Reactions Criticality Noted Date [...] 07/06/2024 Assessment & Plan (07/06/2024 10:52 AM ACCESS ANALYST): I talked with the patient about tinnitus. Typically it is due to hearing loss but there are other potential reasons for it. It can occur due to cervical strain or TMJ disorder. Also potentially due to tumors which are usually benign. Unfortunately there is no widely accepted or successful treatment for it. There are a lot of duzq-unk-boyxvrd remedies which generally do not help and [...] 09/05/2023 Assessment & Plan (07/06/2024 10:51 AM ACCESS ANALYST): He does have pretty significant bilateral sensorineural hearing loss. It is pretty equivalent when comparing right to left. I think he should continue with amplification. 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 07/25/2022 Benign prostatic hyperplasia with urinary obstru ction 07/15/2022 Overview (07/15/2022): Added automatically from request for surgery [id number] Dyslipidemia 02/13/2018 Chest pain 02/13/2018 Essential hypertension [...] on file Legal Sex Male 2:33 AM ACCESS ANALYST Gender Identity Not on file Sexual Orientation [...] CDT Respiratory Rate 20 07/06/2024 10:29 AM ACCESS ANALYST Oxygen Saturation 98% 03/07/2023 12:09 PM CDT Inhaled Oxygen Concentration - - Weight 81.6 kg (180 lb) 07/06/2024 10:29 AM ACCESS ANALYST Height 167.6 cm (5' 6) 07/06/2024 10:29 AM ACCESS ANALYST Body Mass Index 29.05 07/06/2024 10:29 AM ACCESS ANALYST Plan of Treatment Health Maintenance Due Date Last Done Comments Depression Screening 1945 Hepatitis C Screening 1945 DTaP/Tdap/Td Vaccine (1 - Tdap) 1958 Hepatitis B Screening 1965 Well Visit 65+ 01/11/2012 Fall Risk Assessment 03/06/2024 03/06/2023, 02/14/20 18 Covid-19 Vaccine (2024-2 6 season) 2025 11/07/2020, 10/10/2020 Influenza Vaccine (#1) 2025 0, 05/24/2019, 05/24/2019, Additional history exists Pneumococcal vaccine 65+ Completed 018, 06/10/2017, 01/11/2012, Additional history exists Zoster Vaccine Completed 06/23/2020, 04/06/2020 Medical Devices Implanted Type Area Dairy Powder Mixer Operator Device Identifier Shelf Expiration Date Model / Serial / Lot [employer] Srinivasan Ams Spectra 3cm Concealable Rear Tip Solar Project Coordination Specialist Snapcone Prosthesis [id number] - [id number] Implanted:Qty: 1 on 03/06/2023 by Cr Doyle MD at [facility] N/A: Penis [employer] Srinivasan 10/22/2027 [id number] / / [id number] [employer] Srinivasan Ams 700 Lgx Ms Pump 18cm 3 Piece Inflatable Preconnect Infrap[employer]ic [id number] - [id number] Implanted:Qty: 1 on 03/06/2023 by Cr Doyle MD at [facility] N/A: Penis [employer] Srinivasan 11/17/2024 [id number] / / [id number] [employer] Srinivasan Ams 700 Ms Pump Preconnect Inflatable Spherical [place] [id number] - [id number] Implanted:Qty: 1 on 03/06/2023 by Cr Doyle MD at [facility] N/A: Penis [employer] Srinivasan 03/04/2024 [id number] / / [id number] Insurance [facility] MEDICARE SUPPLEMENT INSURANCE MEDICARE MEDICARE [facility] MEDICARE SUPPLEMENT MEDICARE [facility] MEDICARE SUPPLEMENT Advance Directives For more information, please contact: [phone] * Full Code (Latest Code Status on File) Date Activated Date Inactivated Comments 03/06/2023 1:00 PM 03/07/2023 4:35 PM * Full Code Date Activated Date Inactivated Comments 07/25/2022 3:11 PM 07/26/2022 7:31 PM Care Teams Sail Cutter Relationship Specialty [place] [address] [address] [facility] [place] [address] PCP - General Internal Medicine 06/21/24 [place] [address] [facility] [place] [place] [address] Consulting Physician Urology 03/07/23
[2025-07-01 12:20] LABS: Hematocrit 41.6 % (42.0-52.0); Hemoglobin 13.7 g/dL (14.0-18.0); Immature Granulocyte Percent A 0.7 % (0-0.5); Lymphocytes Absolute Auto 1.56 K/mm3 (0.9-3.2); Mean Corpuscular HGB Conc 32.9 g/dl (32-36); Mean Corpuscular Hemoglobin 30.6 pg (26-34); Mean Corpuscular Volume 92.9 fl (80-100); Nucleated Red Blood Cells Absolute Auto 0.000 K/mm3 (0.0-0.012); Nucleated Red Blood Cells Perc 0.0 % (0.0-0.2); Platelet Count Result 214 k/mm3 (150-375); Red Blood Count 4.48 M/mm3 (4.6-6.20); White Blood Count 5.6 K/mm3 (4.5-10.0)
[2025-07-01 12:45] LABS: Alanine Aminotransferase 26 U/L (6-50); Albumin Level 4.4 g/dL (3.5-5.1); Alkaline Phosphatase 42 U/L (38-126); Anion Gap 9 mmol/L (4-12); Aspartate Amino Transferase 36 U/L (17-59); Bilirubin,Total 0.7 mg/dL (0.2-1.3); Blood Urea Nitrogen 23 mg/dL (9-20); Calcium 9.4 mg/dL (8.4-10.2); Carbon Dioxide 24 mmol/L (22-30); Chloride 99 mmol/L (98-107); Estimated Glomerular Filt Rate 45; Glucose 102 mg/dL (65-110); Potassium 4.6 mmol/L (3.4-5.0); Sodium 132 mmol/L (137-145); Total Protein 7.0 g/dL (6.3-8.2)
[2025-07-01 13:20] LABS: Thyroid Stimulating Hormone 2.530 uIU/mL (0.465-4.680)
== END 2025-07-01 11:42 | disposition home or self-care (01) ==
LOC: ANHLAB 11:42
PROVIDERS: PCP Internal Medicine; Visit Provider Internal Medicine
DX: E55.9 Vitamin D deficiency, unspecified (principal); R53.83 Other fatigue; I10 Essential (primary) hypertension
CPT/HCPCS: 36415; 80053; 82306; 84443; 85025